=== PATIENT | female | born 1930 | race Caucasian/White ===

== ENCOUNTER 2018-09-28 18:18 | Inpatient (IN) ==
[2018-09-28] MEDS ORDERED: NS 1,000 ML IV ONE (19:02)
[2018-09-28 20:09] LABS: BASO# 0.05 X1000 (0.0-0.2); BASO% 0.5 % (0.0-0.8); EOS% 2.1 % (0.0-10.0); HEMATOCRIT 32.2 % (37.0-47.0); HEMOGLOBIN 10.2 g/dL (12.0-16.0); IMM GRAN# 0.03 X1000 (0.0-0.04); IMM GRAN% 0.3 % (0.0-0.5); LYMPH# 1.07 X1000 (1.2-3.4); LYMPH% 11.2 % (20.5-51.1); MCH 30.6 PG (27-31); MCHC 31.7 g/dL (33-37); MCV 96.7 FL (81-99); MONO# 0.93 X1000 (0.11-0.59); MONO% 9.7 % (1.7-9.3); MPV 12.9 FL (7.4-10.4); NEUT# 7.27 X1000 (1.4-6.5); NEUT% 76.2 % (42.2-75.2); PLT 172 X1000 (130-400); RBC 3.33 XMIL (4.2-5.4); RDW 14.6 % (11.5-14.5); WBC 9.55 X1000 (4.8-10.8)
[2018-09-28 20:15] LABS: URINE SOURCE CATH
[2018-09-28 20:23] LABS: BILIRUBIN URINE NEGATIVE (NEGATIVE); BLOOD URINE SMALL (NEGATIVE); COLOR YELLOW; GLUCOSE URINE NEGATIVE (NEGATIVE); KETONE URINE NEGATIVE (NEGATIVE); LEUKOCYTES URINE LARGE (NEGATIVE); NITRITE URINE NEGATIVE (NEGATIVE); PH URINE 5.5; PROTEIN URINE 100 mg/dL (NEGATIVE); SP GRAVITY URINE 1.017; TURBIDITY URINE HAZY (CLEAR); UROBILINOGEN URINE 2 mg/dL (NORMAL)
[2018-09-28 20:25] LABS: UR EPITHELIAL CELLS <10 /HPF (<10); URINE BACTERIA 4+ /HPF; URINE RBC <10 /HPF (<10); URINE WBC TNTC /HPF (<10)
[2018-09-28 20:35] LABS: ALBUMIN 3.2 g/dL (3.5-5.0); CALCIUM 9.1 mg/dL (8.8-10.2); CREATININE 1.2 mg/dL (0.5-0.9); POTASSIUM 4.6 mmol/L (3.5-5.1); TOTAL BILIRUBIN 0.92 mg/dL (0.20-1.00); TOTAL PROTEIN 6.5 g/dL (6.3-8.3)
[2018-09-28] MEDS ORDERED: CARDIZEM IV ONE (20:42)
--- NOTE | 2018-09-28 21:27 | Diag Imaging Result Doc PS360 ---
EXAM: CT ABDOMEN/PELVIS W/O CONTRAST INDICATION: abdominal pain, diarrhea TECHNIQUE: This exam was performed using automated exposure control, adjustment of mA or kV according to patient size, and/or use of iterative reconstruction technique. COMPARISON: None. FINDINGS: There is mild subsegmental atelectasis and/or scarring at the lung bases. There is cardiomegaly. There has been a prior cholecystectomy. There is a ill-defined low dense focus adjacent to the gallbladder fossa that probably represents focal fatty infiltration. The liver is unremarkable, otherwise. There is trace free fluid around the liver and a small amount of free fluid in the pelvis. The spleen, pancreas, and adrenal glands are grossly unremarkable. There are a couple of nonobstructing intrarenal stones on the right. There is no hydronephrosis. Urinary bladder is partially distended and there are a few droplets of gas in the nondependent portion of the urinary bladder, nonspecific. They may have been interval used from recent catheterization. There is a 4.7 cm partially calcified mass arising from the uterine wall that likely represents a leiomyoma. There is uncomplicated diverticulosis coli. There is no evidence of bowel obstruction. There is a small hiatal hernia. No focal bowel wall thickening is appreciated. There is no free abdominal gas appreciated. There is extensive aortoiliac atherosclerotic calcification. There is soft tissue anasarca around the pelvis. There is multilevel spondylosis. There is no evidence of acute osseous abnormality. IMPRESSION: 1.Cardiomegaly. 2.Small volume of free fluid in the pelvis. 3.Body wall anasarca that the pelvis. 4.A few droplets of gas in the urinary bladder lumen that may have been introduced from recent catheterization. Please correlate clinically. 5.Other incidental/nonacute findings detailed above. Electronically signed by Caden Woods 09/28/2018 9:25 PM
--- NOTE | 2018-09-28 21:50 | EKG Report ---
Test Performed on : 09/28/2018 8:37:13 PM Test Reason : AMS Blood Pressure : / mmHG Vent. Rate : 121 BPM Atrial Rate : 115 BPM P-R Int : 000 ms QRS Dur : 076 ms QT Int : 308 ms P-R-T Axes : 000 -19 099 degrees QTc Int : 437 ms Atrial fibrillation. with rapid ventricular response. Possible Anterior infarct , age undetermined Abnormal ECG No previous ECGs available Unconfirmed Result
[2018-09-28] MEDS ORDERED: MAGNESIUM SULFATE 2 GM/S.W.I. 2 GM/50 ML IVPB IV ONE (22:39)
[2018-09-29] MEDS ORDERED: ZOFRAN IV PRN (00:27)
[2018-09-29] MEDS ORDERED: LASIX IV ONE ×2 (00:27→10:25)
--- NOTE | 2018-09-29 00:41 | HISTORY AND PHYSICAL ---
ADDENDUM: HISTORY OF PRESENT ILLNESS: Ms. Perla Brewer is an 88-year-old woman with past medical history of worsening and progressive dementia, atrial fibrillation, hypertension, hyperlipidemia, brought in today by the family because she was more confused and has been having visual hallucinations for the last 1 week. She has also been having an almost 2-week history of at least 10 loose stools per day, nonbloody. The patient does not admit to any abdominal symptoms, however. Although, she is an extremely poor historian. Also, the patient's exam is notable for an irregular heart rate, was slightly tachycardic (patient was given Cardizem in the ER). She is also notable for 2+ pitting edema up to the knees with accompanying blanching macular rash which is somewhat urticarial. The family says this occurred over the last couple of weeks and the patient admits that this is pruritic. Also, the patient does have skin changes consistent with chronic venous insufficiency in her lower extremities with crusting of exudates over her shins bilaterally. No focal deficits noted. BRIEF ASSESSMENT INCLUDES: 1. Atrial fibrillation, rapid ventricular response. 2. Urinary tract infection. 3. Acute diarrhea. 4. Worsening dementia with encephalopathy. 5. Hypomagnesemia per laboratory work. PLAN: So, the patient will be covered with Rocephin for urinary tract infection. We will continue cautiously with diuretics, so as not to tip patient into WIL. Preferably use half her current dose. The patient's rash is very typical of a drug rash. I have seen this rash sometimes occurring with use of Cardizem. If it gets worse with the use of Cardizem, then I would suggest switching Cardizem to an alternative rate control agent. Continue with anticoagulation. Replete magnesium. Stool studies are pending and need to be followed closely. Family denies any close contacts with GI symptoms. I will follow urine cultures. cc: Lan Hendricks MD
[2018-09-29] MEDS: ROCEPHIN 1 GM in NS 50 ML IV SCH (00:56)
--- NOTE | 2018-09-29 03:37 | PROVIDER DOCUMENTATION ---
This chart was entered by Yoana Camargo Scribe, acting as scribe for Kathrin Corral MD. HPI-Abdominal Pain/GI Problem - General Chief Complaint: Abdominal Pain Stated Complaint: AMS/ABD PAIN Time Seen by Provider: 09/28/18 18:39 Source: patient Allergies/Adverse Reactions: Patient Allergies Allergy/AdvReac Type Severity Reaction Status Date / Time Iodinated Contrast- Oral and Allergy RASH Verified 09/28/18 19:57 IV Dye [IV Dye] Home Medications: Home Medication List Medication Instructions Recorded Confirmed Last Taken Type Apixaban [Eliquis] 1 tab PO BID 09/28/18 09/28/18 09/26/18 History Aspirin [Aspir-Low] 1 tab PO DAILY 09/28/18 09/28/18 09/26/18 History Cyanocobalamin (Vitamin B-12) 1 tab PO DIRECTED 09/28/18 09/28/18 Unknown History [Cyanocobalamin] Diltiazem HCl [Diltiazem 24Hr ER] 2 cap PO DAILY 09/28/18 09/28/18 09/26/18 History Fenofibrate [Tricor] 1 tab ORDERED DAILY 09/28/18 09/28/18 09/26/18 History Furosemide 1 tab PO DAILY 09/28/18 09/28/18 09/26/18 History Lactobac Cmb #3/Fos/Pantethine 1 cap PO DAILY 09/28/18 09/28/18 09/28/18 History [Probiotic & Acidophilus Cap] Metoprolol Succinate E.r. [Toprol 100 mg PO HS 09/28/18 09/29/18 Unknown History Xl] Pantoprazole Sodium [Protonix] 1 tab PO DAILY 09/28/18 09/28/18 09/26/18 History Pravastatin Sodium [Pravachol] 1 tab PO DAILY 09/28/18 09/28/18 09/26/18 History Metoprolol Succinate E.r. [Toprol 50 mg PO DAILY 09/29/18 09/29/18 Unknown History Xl] - History of Present Illness-ABD Nature of Presenting Problems: Pt is 88/F presenting to ED w/ lower abd pain and diarrhea that she reports started about 2 weeks ago. Sts that she has diarrhea multiple times a day. Granddaughter at bedside sts that she has had some AMS as well and has been reporting seeing bugs that are not actually there. She has not been eating or drinking as normal and has been weak and spending most of her time on the couch. Pt was ambulatory and well just 2 weeks earlier per family. Furthermore, pt sts that she has also had some dysuria, pt is mostly incontinent. Pt does have hx of renal insufficiency and CHF and has a pacemaker/defibrillator. Two weeks prior she was fluid overloaded and her lasix were increased, it is also reported per family that these sx started around this time. Abdominal Pain Onset Location: reports: suprapubic Pain Radiation: reports: no radiation Quality of Pain: reports: aching Severity in ED: reports: mild Onset/Duration: reports: other (2 weeks [employer]NU[employer]) Timing: reports: still present Activities at Onset: reports: none Exposure to sick contacts?: No Modifying Factors: improves with: nothing Associated Symptoms: reports: diarrhea, weakness. denies: chest pain, dizziness, fever/chills, nausea, syncope, vomiting Dark Stools Present?: reports: none noticed Rectal Bleeding: reports: none Rectal Pain: reports: none Emesis Description: reports: none Bruising or Bleeding Gums?: No Similar Symptoms Previously?: No Recently seen or treated by another doctor?: No Review of Systems - Adult - REVIEW OF SYSTEMS - ADULT Constitutional: denies: chills, fever Eyes: reports: no symptoms reported Ears, Nose, Mouth & Throat: reports: no symptoms reported Cardiovascular: reports: no symptoms reported. denies: chest pain Respiratory: reports: no symptoms reported Gastrointestinal: reports: abdominal pain, diarrhea. denies: nausea, rectal bleeding, vomiting Genitourinary: reports: dysuria Musculoskeletal: reports: no symptoms reported Integumentary: reports: no symptoms reported Neurological: denies: dizziness/vertigo, headache/migraines Psychiatric: reports: no symptoms reported Endocrine: reports: no symptoms reported Hematologic/Lymphatic: reports: no symptoms reported Allergic/Immunologic: reports: no symptoms reported All Other Systems: Reviewed and Negative Past History - Adult - PAST MEDICAL HISTORY-ADULT Review of Records: reports: Old Records Reviewed, Nursing Assessment Review, Medications Reviewed, Social history reviewed & non-contributory. Cardiovascular: reports: CHF, pacemaker Genitourinary: reports: incontinence - PRIOR SURGERIES/PROCEDURES Surgical/Procedure History: reports: cholecystectomy - SOCIAL HISTORY Living Situation: alone Physical Exam-General - PHYSICAL EXAM-ADULT Initial Vital Signs Reviewed: Yes - CONSTITUTIONAL General Appearance: appears well, alert, no apparent distress - EYES Eyes: PERRL/EOMI, pink conjunctivae - HEAD, EARS, NOSE, MOUTH & THROAT HENMT: normocephalic/atraumatic, moist mucous membranes, normal ENT inspection - NECK Neck: non-tender, full range of motion, supple, normal inspection - RESPIRATORY Respiratory: lungs clear - CARDIOVASCULAR Cardiovascular: systolic murmur, irregularly irregular - GASTROINTESTINAL (ABDOMEN) Abdominal Exam: normal bowel sounds, soft, tenderness (lower abd/suprpubic tenderness upon palpation) - LYMPHATIC Lymphatic: no adenopathy - MUSCULOSKELETAL Back Exam: normal inspection, no CVA tenderness, no vertebral tenderness Extremity: normal range of motion, non-tender, normal gait, normal inspection - SKIN Integumentary: normal color, warm/dry - NEUROLOGIC Neurologic: grossly normal - PSYCHIATRIC Psych/Mental Status: normal mood/affect, normal thought content, normal thought process, oriented x 3 Progress - PLAN OF CARE/RESULTS Progress/Plan/Lab Results: Vital Signs - 8 hr 09/28/18 18:29 Temperature 98.3 F Pulse Rate 96 H Respiratory Rate 18 Blood Pressure 164/93 O2 Sat by Pulse Oximetry 100 Result Diagrams: 09/28/18 19:49 09/28/18 19:49 - CONSULTS/PCP/HOSPITALIST Notification #1 *Consult/PCP/Hospitalist*: Dr. Hendricks Time Discussed: 23:20 Consult Disposition: Admit (Hx, PE and pt care discussed, accepted.) Departure - Departure Date of Disposition Decision: 09/28/18 Time of Disposition Decision: 23:29 DIAGNOSIS: Weakness, Atrial fibrillation with RVR Diarrhea Qualifiers: Diarrhea type: unspecified type Qualified Code(s): R19.7 - Diarrhea, unspecified Leiomyoma of uterus Qualifiers: Uterine leiomyoma location: unspecified location Qualified Code(s): D25.9 - Leiomyoma of uterus, unspecified UTI (urinary tract infection) Qualifiers: Urinary tract infection type: acute cystitis Hematuria presence: without hematuria Qualified Code(s): N30.00 - Acute cystitis without hematuria Disposition: ADMITTED INPATIENT 09 Certified Medical Emergency: Emergent Condition: Stable - Critical Care Note This patient required my direct & personal management of CC.: No Attestation - Physician/ TAM Attestation Patient care was provided by Advanced Practice Provider:: No The physician spent face to face time with patient:: Yes Advanced Practice Provider documentation review:: Supervising physician onsite and consulted in the evaluation and care of this patient. The physician did have a face to face encounter with the patient. This chart was documented by the indicated scribe, (Yoana Camargo, Mary) and accurately reflects the services I performed and decisions made by me, Kathrin Wahl MD, as attested by the provider's signature.
[2018-09-29 04:38] LABS: INR 1.06; PROTIME 14.7 Seconds (11.0-16.0)
[2018-09-29 04:39] LABS: PTT 37.1 Seconds (22.3-41.8)
[2018-09-29 04:58] LABS: BASO# 0.07 X1000 (0.0-0.2); BASO% 0.9 % (0.0-0.8); EOS# 0.12 X1000 (0.0-0.7); EOS% 1.6 % (0.0-10.0); IMM GRAN# 0.03 X1000 (0.0-0.04); IMM GRAN% 0.4 % (0.0-0.5); LYMPH# 0.74 X1000 (1.2-3.4); LYMPH% 9.9 % (20.5-51.1); MCH 30.7 PG (27-31); MCHC 31.3 g/dL (33-37); MCV 98.2 FL (81-99); MONO# 0.74 X1000 (0.11-0.59); MONO% 9.9 % (1.7-9.3); MPV 12.7 FL (7.4-10.4); NEUT% 77.3 % (42.2-75.2); PLT 150 X1000 (130-400); RBC 3.26 XMIL (4.2-5.4); RDW 14.4 % (11.5-14.5)
[2018-09-29 05:00] LABS: EOS 1 % (1-10); LYMPHS 11 % (21-51); MONO 9 % (1-9); SEGS 79 % (42-75)
[2018-09-29 05:01] LABS: CALCIUM 8.9 mg/dL (8.8-10.2); CREATININE 1.2 mg/dL (0.5-0.9); MAGNESIUM 1.6 mg/dL (1.5-2.7); POTASSIUM 3.8 mmol/L (3.5-5.1)
[2018-09-29] MEDS: PROTONIX PO SCH (06:19)
--- NOTE | 2018-09-29 06:51 | HISTORY AND PHYSICAL ---
PRIMARY CARE PROVIDER: Dr. Tahmina Stuart. RECREATIONAL ASSISTANT: Dr. Braden at the [facility]. CHIEF COMPLAINT: Abdominal pain and diarrhea. HISTORY OF PRESENT ILLNESS: Ms. Brewer is an 88-year-old female with a past medical history most notable for chronic atrial fibrillation on anticoagulation with Eliquis hypertension, hyperlipidemia, congestive heart failure, chronic kidney disease, and dementia. Her family which included her son, her evdgjgnr-oo-aam, and her granddaughter who is a nurse were present at bedside. They report that now over the past 6 months or so that she has had progressive worsening dementia and is now having some worsening confusion and visual hallucinations. Her son states that since she had a cholecystectomy performed that this has progressively gotten worse. They also report that for approximately 6 months now that her congestive heart failure seems to be possibly acting up. She does have orthopnea, and sleeps propped up at night. She has had bilateral lower extremity edema and left arm edema. Her granddaughter states that approximately 1-2 months ago that they did double her Lasix dose that she went from taking 40 mg a day to 80 mg twice a day. They state that since that time that she has lost approximately 15 pounds, and that her edema has improved though is still worse than it previously was. They also report that now she has been complaining of some lower abdominal pain. She does have an erythematous rash noted to bilateral lower extremities that has just come up in the past few days. The patient reports this is an itchy rash. They also report that she has had diarrhea for the past 2 weeks. She is having approximately up to 10 episodes of loose stools that are watery brownish orange in color for the past 2 weeks. They deny her having any new medicine or any recent medication changes. They also deny anyone else in the family having similar symptoms. Her granddaughter does report that she believes that the patient has not been completely compliant with her atrial fibrillation medications that she may miss a dose of Cardizem, metoprolol, and even her Lasix every now and then. The patient does seem to be more confused, and they report that she is having visual hallucinations that she is seeing bugs that are not there. Upon my examination in the ER, the patient was sitting up in the ER stretcher resting. The patient is alert and oriented to person, place, and time. Though she could not remember her son's middle name who was at bedside. Other than this, she did seem to answer questions appropriately. She denies any headache, dizziness, or chest pain. She is reporting some exertional dyspnea as well as orthopnea. She denies any proximal nocturnal dyspnea. She denies any cough. The patient was reporting some lower abdominal pain that was nontender upon palpation. Bowel sounds are present in all 4 quadrants. She denied any nausea or vomiting. She reported that her stools were loose, watery, and brownish orange in color. There was no known hematochezia or melena. The patient is denying any dysuria or urinary frequency. She is reporting that she has swelling in her bilateral lower extremities and that she does have an itchy rash, which was noted upon my examination though she denies any pain, numbness or tingling in extremities. The patient upon arrival to the ER was tachycardic with a heart rate in the 130s. This was noted to be atrial fibrillation with a rapid ventricular response on her EKG. I did give her 20 mg of Cardizem IV push, and since that time her heart rate has improved. It is maintaining in the 80s at this time. She does have crackles noted in bilateral lower lung mock. She does have some slight JVD noted with a positive hepatojugular reflex. She does have 2 to 3+ pitting edema noted in bilateral lower extremities as well as some swelling noted to her left arm. Chest x-ray did appear to have some pulmonary vascular congestion noted as well as some cardiomegaly though we are awaiting official radiology read. ProBNP was 24,989. Troponin was slightly elevated at 0.077. The patient does have some chronic kidney disease. This could be related to this though actually compared to the only previous labs we have on record her creatinine had improved from 2 to 1.2. Her magnesium was low at 1.3 though all other electrolytes were within normal limits. Urinalysis did show small amount of blood, large leukocytes, too numerous to count white blood cells, and 4+ bacteria. CT abdomen and pelvis showed cardiomegaly, body wall anasarca though there were no other acute abnormalities noted. At this time, the patient will be admitted for further treatment and evaluation. REVIEW OF SYSTEMS: 1. A 14 point review of systems was conducted with the patient. All were negative except for pertinent positives mentioned above in HPI. 2. Coronary artery disease, status post coronary artery bypass graft. 3. Congestive heart failure. 4. Chronic atrial fibrillation on chronic anticoagulation with Eliquis. 5. Hypertension. 6. Hyperlipidemia. 7. Chronic kidney disease. 8. Dementia. 9. Gastroesophageal reflux disease. 10. Cataracts. PAST SURGICAL HISTORY: 1. Coronary artery bypass graft. 2. Cholecystectomy. 3. Cataract surgery. 4. Pacemaker/defibrillator placement. SOCIAL HISTORY: The patient has no known past or present history of tobacco, alcohol or illicit drug use. She does not require ambulatory assistance at this time. The patient does live alone though does live at [facility]. There may be a possible need upon discharge to have the patient placed in a higher level of care and possibly maybe an assisted living facility. ALLERGIES: Patient has allergies to iodinated contrast, oral and IV dye. HOME MEDICATIONS: 1. Eliquis 2.5 mg p.o. b.i.d. 2. Aspirin 81 mg p.o. daily. 3. Vitamin B2 1000 mcg tablet orally as directed. 4. Diltiazem 24 hour extended release 360 mg p.o. daily. 5. TriCor 145 mg p.o. daily with food. 6. Lasix 40 mg p.o. daily. 7. Probiotic and acidophilus capsule 1 capsule p.o. daily. 8. Toprol-XL 50 mg p.o. daily in the morning. 9. Toprol-XL 100 mg p.o. at bedtime. 10. Protonix 40 mg p.o. daily. 11. Pravachol 80 mg p.o. daily. DIAGNOSTIC DATA: 1. White blood cell count is 9550, hemoglobin 10.2, hematocrit 32.2, and platelet count is 172,000. Sodium 140, potassium 4.6, chloride 104, serum bicarb 21, BUN 28, creatinine 1.2, with GFR 43, glucose 114, calcium 9.1, magnesium 1.3. Liver function tests within normal limits except for AST is elevated at 36. CK 88, troponin 0[place]077[place] [address]. Urinalysis was obtained via catheter, and was positive for protein, blood, large leukocytes, too numerous to count, blood cells, and 4+ bacteria. EKG showed atrial fibrillation with RVR at a rate of 121 with a QTc of 437. 2. Chest x-ray did show what looks like some possibly increased pulmonary vascular congestion and cardiomegaly, though we are awaiting official radiology over-read. 3. CT of abdomen and pelvis without contrast showed cardiomegaly. A small volume of free fluid in the pelvis. There is body wall anasarca in the pelvis. There are a few droplets of gas in the urinary bladder lumen that may have been introduced from a recent catheterization. Please correlate clinically. The patient from what I understand did undergo an in and out catheterization in the ER to obtain a urinalysis. 4. There were other incidental nonacute findings. Please see full report for details. PHYSICAL EXAMINATION: VITAL SIGNS: Temperature 98.2 degrees, heart rate 90, respirations 20, blood pressure 162/97, and oxygen saturation is 98% on room air. GENERAL: Ms. Brewer is a pleasant 88-year-old elderly female. She was resting in the ER stretcher. She was in no acute distress. She was awake, alert, and able to answer questions appropriately. HEENT: Head is atraumatic, normocephalic. Pupils are equal, round, reactive to light, and were 3 mm bilaterally and brisk. Oral mucosa is moist. Oropharynx was clear. NECK: Supple. Trachea midline. There was JVD noted. There was some slight JVD noted upon examination with a positive hepatojugular reflex. CARDIOVASCULAR: Patient has S1-S2 present. There does appear to maybe be a faint systolic murmur noted. No other gallops or rubs appreciated. She does have a regular rate with an irregularly irregular rhythm. PULMONARY: Patient has symmetrical chest expansion bilaterally. Lung sounds in bilateral upper mock were clear though she did have fine crackles noted in bilateral bases. ABDOMEN: Soft. Nondistended. Nontender. Bowel sounds are present in all 4 quadrants and were normoactive. EXTREMITIES: No cyanosis noted though the patient does have 2 to 3+ pitting edema noted in bilateral lower extremities. This extends all the way up to her hip area. She does have some areas on her bilateral lower legs below the knees where it does look like she is weeping a little bit. She also does have some swelling with 1+ edema in her left upper extremity. Right upper extremity within normal limits. Radial and pedal pulses were 2+ bilaterally. Pulse, motor, and sensory are intact in all extremities. She also does have some slight erythema noted to bilateral lower extremities. She does have a erythematous pruritic rash noted that does ofelia noted on bilateral lower extremities as well. INTEGUMENTARY: The patient's skin is pink, warm, and dry except for above abnormalities mentioned in the extremities exam. NEUROLOGICAL: Patient is alert and oriented to person, place, and time. She is able to answer questions appropriately and follow commands though does seem to be off. She was not able to tell us her son's middle name who was at bedside though she is able to move all extremities. Does not appear to be any focal neurological deficits noted. ASSESSMENT AND PLAN: 1. Congestive heart failure exacerbation. The patient may be slightly exacerbated. She has been having problems with edema, exertional dyspnea, and orthopnea over the past several months. We will continue the series of cardiac enzymes. We will repeat an EKG in the morning. We have also ordered an echocardiogram. We will give her a 1 time dose of IV Lasix, and continue her regularly prescribed oral Lasix in the morning. We have placed a consult with Cardiology, and will await their evaluation and further recommendations for management. 2. Chronic atrial fibrillation. The patient was in atrial fibrillation with RVR upon arrival. The granddaughter at bedside states that she may be missing some of her doses of medicine. She was given 20 mg IV push of Cardizem, and her heart rate is back within normal limits at this time. We will continue her regularly prescribed extended release Cardizem and Toprol-XL. We will continue with the prescribed anticoagulant of Eliquis. She was placed on continuous cardiac telemetry and CIC. We will do vital signs per CIC protocol. 3. Diarrhea. For further evaluation of this, we have placed orders for stool studies. The patient denies any new medicines or any medication changes. She is denying any abdominal pain at this time though did previously reports some lower abdominal pain that was nontender upon palpation. CT abdomen and pelvis did not show anything acute that could be causing this at this time. We will await stool studies and continue to follow. 4. Hypomagnesemia. This is likely related to her diarrhea. Given her reported weakness and cardiac history, we will go ahead and replace this with 2 g of magnesium sulfate IV. We will repeat a BMP and magnesium in the morning. 5. Urinary tract infection. The patient is not reporting dysuria, but is reporting some lower abdominal pain and has had some worsening confusion. We will place her with antibiotics coverage of Rocephin 1 g IV daily 24 hours. We will await urine culture results. 6. Weakness. This could be multifactorial. The patient does have CHF atrial fibrillation. She has been having several daily episodes of diarrhea, and has a urinary tract infection as well. We will continue to monitor this closely. We will order a physical therapy evaluation and we will continue to follow. 7. Encephalopathy. The patient does have a history of dementia. The family reports that she has been more confused recently. Actually, she had some hallucinations of seeing some bugs that were not there. To be multifactorial, the patient does have a urinary tract infection at this time. This could be related to this. We will continue to monitor this closely. 8. Chronic kidney disease. I only had set of previous labs to compare her renal function to for which her creatinine was 2, and it is now 1.2. At this time, this appears to be stable and actually improved. We will avoid nephrotoxic medications, and renally dose medications as necessary. We will do strict intake and output. 9. The patient has been placed on CIC with telemetry. She will have vital signs per CICC protocol, strict intake and output, incentive spirometry, frequent turns, cough, and deep breathing. She will be on a heart healthy diet. There is a concern given the patient's worsening confusion that she may require a higher level of care upon discharge possibly in an assisted living facility. We will place a social services counselor consult for further evaluation of this. Further orders and recommendations pending hospital course, diagnostic studies, and physician evaluation. Dictated by PABLO Clark for Lan Hendricks MD cc: Lan Hendricks MD
--- NOTE | 2018-09-29 07:18 | Diag Imaging Result Doc PS360 ---
EXAM: CHEST-PORTABLE 09/28/2018 HISTORY: Weakness TECHNIQUE: AP portable at 1100 COMMENT: There is cardiomegaly and increased pulmonary vascularity. There is interstitial pulmonary edema. There are no previous studies. IMPRESSION: Cardiomegaly and pulmonary edema. Electronically signed by Dominic Means 09/29/2018 7:16 AM
--- NOTE | 2018-09-29 07:25 | EKG Report ---
Test Performed on : 09/29/2018 06:33:00 AM Test Reason : CHF,A-Fib Blood Pressure : / mmHG Vent. Rate : 103 BPM Atrial Rate : 092 BPM P-R Int : 000 ms QRS Dur : 080 ms QT Int : 370 ms P-R-T Axes : 000 -17 032 degrees QTc Int : 484 ms Atrial fibrillation. /atrial flutter with rapid ventricular response. with premature ventricular or a berrantly conducted complexes. Possible Anterior infarct (cited on or before 28-SEP-2018) Abnormal ECG When compared with ECG of 28-SEP-2018 20:37, (Unconfirmed) No significant change was found Confirmed by Richard Foreman MD ([id number]) on 09/29/2018 6:40:13 PM
[2018-09-29] MEDS ORDERED: DILTIAZEM HCL PO SCH ×2 (09:00)
[2018-09-29] MEDS ORDERED: LASIX PO SCH ×2 (09:00→18:00)
[2018-09-29] MEDS ORDERED: PRAVASTATIN SODIUM PO SCH (09:00)
[2018-09-29] MEDS: ASPIRIN EC PO SCH (09:39)
[2018-09-29] MEDS: ELIQUIS PO SCH ×2 (09:39→20:48)
[2018-09-29] MEDS: CULTURELLE PO SCH (09:39)
[2018-09-29] MEDS: TOPROL XL PO SCH ×2 (09:41→20:49)
--- NOTE | 2018-09-29 10:33 | EKG Report ---
Test Performed on : 09/29/2018 09:31:08 AM Test Reason : elevated HR Blood Pressure : / mmHG Vent. Rate : 121 BPM Atrial Rate : 375 BPM P-R Int : 000 ms QRS Dur : 084 ms QT Int : 322 ms P-R-T Axes : 000 -16 076 degrees QTc Int : 457 ms Atrial flutter. with variable AV block. with premature ventricular or aberrantly conducted complexes. Possible Anterior infarct (cited on or before 28-SEP-2018) Abnormal ECG When compared with ECG of 29-SEP-2018 06:33, (Unconfirmed) No significant change was found Confirmed by Richard Foreman MD ([id number]) on 09/29/2018 8:50:48 PM
--- NOTE | 2018-09-29 11:11 | PROGRESS NOTE ---
DATE: 09/19/2018 INTERVAL HISTORY: No acute events overnight. SUBJECTIVE: The patient was admitted for atrial fibrillation with rapid ventricular rate, suspected acute cystitis and worsening confusion with likely progression of dementia and diarrhea. The patient is alert and oriented to herself, not entirely with the situation. She identifies her [id number] as her niece. She is denying any chest pain or shortness of breath. However, appears in mild shortness of breath. VITALS: Temperature 99.9 degrees, pulse of 103 per minute, respiratory 22, blood pressure 150/70, saturating 96% on nasal cannula. Physical: In mild distress because of shortness of breath. No pallor, cyanosis, clubbing or icterus. Oral cavity is moist. Bilateral infrascapular crackles. S1 S2 normal, irregularly irregular. Abdomen is soft, nontender. Bilateral lower extremity edema extending upto thighs. Urticarial rash affecting left lateral leg and thigh. she is alert, oriented to her self and place but not with the situation. Follows Commands like opening mouth, raising both hands above ground level. LABS: Normocytic anemia, normal platelet count, normal coagulation profile. Hypomagnesemia has resolved. She appears to have chronic kidney disease stage III to stage IV. However, I do not have previous labs to call it chronic. Her troponins have been showing flat trend so far. Microbiology urine culture is in lab. IMAGING: No new imaging data. ASSESSMENT AND PLAN: 1. Acute dyspnea due to acute pulmonary edema, likely acute CHF exacerbation. Follow up echocardiogram. This is likely related to medication noncompliance as per talk with the patient's [id number]. Continue Lasix and give additional doses as required. 2. Atrial fibrillation with rapid ventricular rate. She is listed to be taking metoprolol, diltiazem and apixaban. I will continue metoprolol, apixaban and add diltiazem as tolerated after echocardiogram. She is more than 77 years old. Has history of hypertension. Her CHADS2 Vasc score is at least 3 for now pending echocardiogram. 3. Reported history of diarrhea and acute cystitis on admission CT scan. Continue intravenous ceftriaxone. Follow up urine culture. Follow up Clostridium difficile analysis and stool studies as well. 4. Others chronic kidney failure, likely chronic. Appears to be at baseline. Follow up with basic metabolic profile. Start Loratadine for urticarial rash over leg. 5. Dementia with progressive functional decline over months. At the time of discharge the patient would need rehab and likely long-term fdc facility. I did discussed that with the patient's [id number]. I will try and get in touch with the patient's granddaughter, also inform her about the patient's care. I will continue to monitor patient in CIC for now. 6. Plan of care discussed with the patient's [id number]. All of her questions have been answered. cc: Davian Saba MD MTDD
[2018-09-29] MEDS: MAGNESIUM SULFATE 2 GM/S.W.I. 2 GM/50 ML IVPB IV SCH ×2 (12:09→14:30)
[2018-09-29] MEDS ORDERED: CALMOSEPTINE OINTMENT TOP PRN (13:05)
[2018-09-29] MEDS ORDERED: LOPRESSOR IV PRN (13:23)
[2018-09-29] MEDS ORDERED: CARDIZEM CD PO ONE (13:23)
--- NOTE | 2018-09-29 14:05 | CARDIOLOGY CONSULTATION ---
DATE: 09/29/2018 CHIEF COMPLAINT ON PRESENTATION: Abdominal pain, weakness, confusion. HISTORY OF PRESENT ILLNESS: Ms Brewer is an 88-year-old white female with a history of chronic atrial fibrillation normally followed by Dr. Sampson west in [place]. She presents with complaints of generalized confusion, weakness. I believe the daughter is present with her today. She has also had issues of hallucinations as well as diarrhea. The patient was ultimately admitted, found to be in a tachycardic irregular rhythm consistent with her atrial fibrillation. She was admitted to the [facility]. Presently, the patient seems more alert, able to interact with the examiner. She has no acute complaints and is tolerating oral intake. PAST MEDICAL HISTORY: 1. Coronary disease with history of bypass. She has a history of MORALES to the LAD. This was performed in 2006. Her last heart catheterization was in 2016. She had a proximal LAD lesion of 90%, D1 lesion of 90%, D2 of 90%, circumflex had 30%, RCA 30%. Her MORALES to the LAD was patent on that study. 2. Ischemic cardiomyopathy. Last echo in 2018 with an ejection fraction of 50%. 3. AICD implant at [place]. 4. Atrial fibrillation, maintained on low-dose Eliquis. 5. Hypertension. 6. Hyperlipidemia. 7. Chronic renal insufficiency. SOCIAL HISTORY: She has no history of tobacco, alcohol, or illicit drugs. She lives at [facility]. REVIEW OF SYSTEMS: A 10 system review of systems is negative, except for those things mentioned in HPI. PHYSICAL EXAMINATION: She is afebrile, heart rate of 114, blood pressure 162/71.General: She is in no acute distress. HEENT: Oropharynx is moist. Poor dentition. Eye examination shows pink conjunctivae and white sclerae. Her neck examination shows no obvious thyromegaly or thyroid tenderness. Cardiovascularly, she sounds to be in an irregularly irregular tachycardic rhythm. She has no obvious murmurs. She has no S3. She has mild bilateral lower extremity edema and warm and well-perfused lower extremities. Her chest exam has basilar rales up to around 1/3. She has no increased work of breathing. Her abdomen is soft, nontender, nondistended. She has no obvious organomegaly. Her skin exam is warm and dry throughout without any rashes. Neurologically, she seems to be moving all extremities well. She has no lateralizing deficits. DATA: Her chest x-ray shows cardiomegaly with pulmonary edema. Abdomen and pelvis CT demonstrates a small volume of free fluid in the pelvis. She has anasarca noted. Laboratory data shows white count is 7.5, hematocrit 32, platelet count of 150,000. She has a left shift. Her sodium is 142, potassium 3.8, BUN 27 creatinine 1.2. Her magnesium level is 1.6. Her cardiac enzymes are negative times multiple sets. Her proBNP was elevated at 24,000. ASSESSMENT: Ms Brewer is an 88-year-old female who presented with myriad symptoms, includin. Malaise. 2. Fatigue. 3. Confusion. 4. Atrial fibrillation with rapid ventricular response. PLAN: She has chronic atrial fibrillation. We will place her on a Cardizem drip to try to control her. She continues on metoprolol. She does appear to have a urinary tract infection and is receiving antibiotics for this. She does seem volume overloaded so we will give her some IV Lasix as well. Laboratories will be checked in the morning. cc: John Crane MD
[2018-09-29] MEDS: CARDIZEM 125 MG/D5W 125 MG/125 ML IVPB IV SCH (14:44)
[2018-09-29] MEDS: CLARITIN PO SCH (20:48)
[2018-09-29] MEDS: TRICOR PO SCH (20:49)
[2018-09-29] MEDS: LASIX IV SCH (20:49)
[2018-09-29] MEDS: PRAVACHOL PO SCH (20:49)
--- NOTE | 2018-09-29 23:04 | ECHO REPORT ---
ORDER DATE: 09/29/2018 MEASUREMENTS: Septal thickness 1.0, left ventricular internal diameter diastole 3.9, posterior wall thickness 1.1. Aortic root 2.9. Left atrium 5.0. SUMMARY: 1. Fair quality study. 2. Moderate sclerosis of trileaflet aortic valve demonstrated with adequate aortic valve opening evident. Peak gradient across aortic valve is less than 10 mmHg. Mild mitral annular calcification is demonstrated. There is moderate to severe mitral regurgitation. Tricuspid and pulmonic valves are without evidence of structural abnormality with moderate to severe tricuspid regurgitation and mild pulmonic insufficiency. The estimated systolic PA pressure by Doppler is 55 to 60 mmHg, suggesting moderate pulmonary hypertension. Aortic root is normal in size. 3. Normal left ventricular dimensions suggested. Assessment of left ventricular systolic function is somewhat challenging given patient's atrial fibrillation with rapid ventricular rate during the study. Estimated left ejection fraction appears to be at least 40%. No focal wall motion abnormality can be appreciated. Left atrium is moderately enlarged. Right atrium is [id number] enlarged. Right ventricle is normal in size with grossly preserved right ventricular systolic function. 4. No pericardial effusion. 5. Inferior vena cava not well demonstrated. cc: Maurice Fabian MD
[2018-09-30] MEDS: ROCEPHIN 1 GM in NS 50 ML IV SCH (00:18)
[2018-09-30 00:48] LABS: URINE SOURCE CATH
[2018-09-30 00:50] LABS: BILIRUBIN URINE NEGATIVE (NEGATIVE); BLOOD URINE NEGATIVE (NEGATIVE); COLOR YELLOW; GLUCOSE URINE NEGATIVE (NEGATIVE); KETONE URINE NEGATIVE (NEGATIVE); LEUKOCYTES URINE LARGE (NEGATIVE); NITRITE URINE NEGATIVE (NEGATIVE); PROTEIN URINE TRACE mg/dL (NEGATIVE); TURBIDITY URINE HAZY (CLEAR); UROBILINOGEN URINE NORMAL (NORMAL)
[2018-09-30 00:51] LABS: UR EPITHELIAL CELLS <10 /HPF (<10); URINE BACTERIA NEGATIVE /HPF; URINE RBC <10 /HPF (<10); URINE WBC TNTC /HPF (<10)
[2018-09-30] MEDS: PROTONIX PO SCH ×2 (05:38→06:17)
[2018-09-30] MEDS: CARDIZEM 125 MG/D5W 125 MG/125 ML IVPB IV SCH (05:38)
[2018-09-30 05:56] LABS: CALCIUM 8.5 mg/dL (8.8-10.2); CREATININE 1.3 mg/dL (0.5-0.9); MAGNESIUM 2.3 mg/dL (1.5-2.7); POTASSIUM 3.2 mmol/L (3.5-5.1)
[2018-09-30] MEDS: ASPIRIN EC PO SCH (09:29)
[2018-09-30] MEDS: CULTURELLE PO SCH (09:31)
[2018-09-30] MEDS: KLOR-CON PO SCH ×2 (09:32→12:10)
[2018-09-30] MEDS: CLARITIN PO SCH (09:33)
[2018-09-30] MEDS: TOPROL XL PO SCH ×2 (09:33→20:06)
[2018-09-30] MEDS: ELIQUIS PO SCH ×2 (09:33→20:06)
[2018-09-30] MEDS: LASIX IV SCH ×3 (09:34→20:06)
--- NOTE | 2018-09-30 09:47 | PROGRESS NOTE ---
DATE: 09/30/2018 INTERVAL HISTORY: Cardiology team had evaluated the patient and had recommended diltiazem drip and IV Lasix. She has made about 1.4 L of urine on that. SUBJECTIVE: She is feeling slightly better than she did yesterday. Denies any chest pain. She is feeling mildly short of breath. We discussed about physical exam findings, continuing current treatment. I answered all of her questions. VITALS: Temperature 98.2 degrees, pulse 80, respiratory rate 18, blood pressure 146/66, saturating 95% on 2 L nasal cannula. PHYSICAL EXAMINATION: General: She does not appear in any acute distress. HEENT: Oral cavity is moist. Lungs: Air entry bilaterally equal. She does have inspiratory crackles with decreased air entry bilateral infrascapular region. Cardiac: S1, S2 normal. Irregularly irregular. No murmur, rub, or gallop. Abdomen: Soft, nontender. Extremities: Bilateral lower extremity edema extending up to thigh level. Her urticarial rash on the left lower extremity is better. Neurologic: She is alert. She is oriented to place, person, and partially to situation. She is able to sit at the edge of the bed by herself. Input and output are -700 mL so far today. LABS: Suggestive of hypokalemia which is being repleted. She does appear to have chronic kidney disease in stage 3 range. Urine culture is gram-negative jeevan pending final culture and sensitivity. Echocardiogram had suggested ejection fraction of at least 40% without any focal regional wall motion abnormality with moderate to severe mitral regurgitation and pulmonary hypertension. On bedside telemetry, she is still in atrial fibrillation. ASSESSMENT AND PLAN: 1. Acute dyspnea due to acute pulmonary edema due to likely acute systolic congestive heart failure exacerbation due to medication noncompliance with echocardiogram suggest 40% EF. However, it was limited considering her atrial fibrillation at the time of evaluation. Continue intravenous Lasix as per Cardiology recommendation. Her troponins were showing flat trend at the time of admission. 2. Atrial fibrillation with rapid ventricular rate. Continue extended-release metoprolol and diltiazem with apixaban. Cardiology on board. She is still in atrial fibrillation. 3. Reported history of diarrhea and acute cystitis on admission CT scan. Her diarrhea seems to be getting better. Continue intravenous ceftriaxone. Follow up final urine culture and sensitivity. 4. Chronic kidney disease, currently appears to be in stage 3 range. Follow up daily BMP and magnesium. 5. Dementia with progressive functional decline over months. Physical therapy is on board. Eventually, she would need rehab. 6. Disposition. I will continue to monitor patient in [facility]. Plan of care discussed with the patient and nursing team. All of their questions have been answered. Yesterday I had discussed plan of care with the patient's granddaughter as well as daughter in-law. cc: Davian Saba MD
[2018-09-30] MEDS: COZAAR PO SCH (12:10)
--- NOTE | 2018-09-30 14:42 | CARDIOLOGY PROGRESS NOTE ---
DATE: 09/30/2018 SUBJECTIVE: The patient continues to be somewhat confused. She is pleasant and conversive but is confused. PHYSICAL EXAMINATION: Vital signs: She is afebrile, heart rate 95, blood pressure 147/83. General: She is in no acute distress. Cardiovascular: She sounds to be in a irregularly irregular but rate controlled rhythm. She has no murmurs. She has no S3. She has mild bilateral lower extremity edema. Chest: Has reduction in breath sounds in the bilateral bases. She has no increased work of breathing. Abdomen: Soft, nontender. PERTINENT DATA: Sodium 139, potassium 3.2, BUN 28, creatinine is 1.3. ProBNP is greater than 35,000. ASSESSMENT: Ms. Brewer is an 88-year-old female who presented with what appears to be a urinary tract infection and rapid atrial fibrillation and congestive heart failure. PLAN: Her echocardiogram was reviewed from yesterday, demonstrates a low ejection fraction of 40%. In addition, she has moderate to severe tricuspid regurgitation and moderate to severe mitral regurgitation. I have added in losartan 25 mg daily. We will continue with IV diuresis. Her rate is controlled on her current regimen. cc: John Crane MD
[2018-09-30] MEDS: VANCOCIN PO SCH ×2 (16:00→20:07)
[2018-09-30] MEDS: TRICOR PO SCH (17:25)
[2018-09-30] MEDS: CARDIZEM PO SCH (20:07)
[2018-09-30] MEDS: PRAVACHOL PO SCH (20:07)
[2018-10-01] MEDS: ROCEPHIN 1 GM in NS 50 ML IV SCH (00:28)
[2018-10-01] MEDS: VANCOCIN PO SCH ×4 (01:37→20:04)
[2018-10-01] MEDS: CARDIZEM PO SCH ×4 (01:37→20:04)
[2018-10-01 05:49] LABS: BASO# 0.01 X1000 (0.0-0.2); BASO% 0.2 % (0.0-0.8); EOS# 0.22 X1000 (0.0-0.7); EOS% 3.8 % (0.0-10.0); HEMATOCRIT 26.9 % (37.0-47.0); HEMOGLOBIN 8.6 g/dL (12.0-16.0); IMM GRAN# 0.02 X1000 (0.0-0.04); IMM GRAN% 0.3 % (0.0-0.5); LYMPH# 0.69 X1000 (1.2-3.4); LYMPH% 11.9 % (20.5-51.1); MCH 31.2 PG (27-31); MCV 97.5 FL (81-99); MONO# 0.62 X1000 (0.11-0.59); MONO% 10.7 % (1.7-9.3); MPV 13.3 FL (7.4-10.4); NEUT# 4.26 X1000 (1.4-6.5); NEUT% 73.1 % (42.2-75.2); PLT 141 X1000 (130-400); RBC 2.76 XMIL (4.2-5.4); WBC 5.82 X1000 (4.8-10.8)
[2018-10-01] MEDS: PROTONIX PO SCH ×2 (05:58→06:01)
[2018-10-01 06:09] LABS: CALCIUM 8.3 mg/dL (8.8-10.2); CREATININE 1.2 mg/dL (0.5-0.9); MAGNESIUM 1.8 mg/dL (1.5-2.7); POTASSIUM 3.6 mmol/L (3.5-5.1)
[2018-10-01] MEDS: ELIQUIS PO SCH ×2 (09:02→20:06)
[2018-10-01] MEDS: CLARITIN PO SCH (09:02)
[2018-10-01] MEDS: COZAAR PO SCH (09:02)
[2018-10-01] MEDS: ASPIRIN EC PO SCH (09:03)
[2018-10-01] MEDS: CULTURELLE PO SCH (09:03)
[2018-10-01] MEDS: TOPROL XL PO SCH ×2 (09:03→20:04)
--- NOTE | 2018-10-01 13:27 | PROGRESS NOTE ---
DATE: 10/01/2018 INTERVAL HISTORY: Her heart rate was well controlled on oral diltiazem and oral metoprolol. Her blood pressure was also better controlled. Her Clostridium difficile was positive, and she was started on oral vancomycin. Urinalysis has Klebsiella. SUBJECTIVE: She is feeling fine. Patient's son is at bedside. I discussed with the patient and her son about exam findings and plans, and answered all of their questions. The patient denies any chest pain or shortness of breath, feeling generally better. Denies any nausea or vomiting. She had a bowel movement which was formed hard around today morning. VITALS: Temperature 97.6 degrees, pulse 85, respiratory 15, blood pressure 140/72 and saturating 100% on 2 L nasal cannula. PHYSICAL EXAMINATION: Not in any acute distress. Oral cavity is moist. She does have decreased air entry with inspiratory crackles, more pronounced on the left than on the right, though present bilaterally. No wheeze or rhonchi. S1, S2 normal. Irregularly irregular. No murmur, rub, or gallop. Abdomen is soft and nontender. She has bilateral lower extremity edema extending up to thigh level. I could not appreciate a rash, which has significantly decreased. She is alert. She is oriented to place and person, and not entirely with the situation though. LABORATORY: Labs are suggestive of no leukocytosis, normocytic anemia, normal platelet count. She does have potassium of 3.6 on what appears to be chronic kidney disease stage 3. MICROBIOLOGICAL DATA: Fecal occult blood test was negative. C. Difficile antigen and antibody was positive. ASSESSMENT AND PLAN: 1. Acute dyspnea due to acute pulmonary edema due to acute systolic congestive heart failure exacerbation due to medication noncompliance with ejection fraction of 40%. Continue intravenous Lasix today, and start patient on oral Lasix. Appreciate cardiology recommendations about this. 2. Atrial fibrillation with rapid ventricular rate, well controlled on extended-release metoprolol and diltiazem. I will appreciate Cardiology recommendation about starting her on controlled release diltiazem. She is on apixaban for primary cerebrovascular accident prophylaxis. 3. Acute Klebsiella pneumoniae cystitis. Change antibiotics to oral Keflex. 4. Acute C. Difficile colitis. Start patient on oral vancomycin for 14 days. 5. Chronic kidney disease stage 3; dementia without behavioral disturbance are stable. 6. Physical Therapy on board. DISPOSITION: My plan is to continue to watch the patient for another 24 hours, give her IV Lasix, and hopefully discharge her to rehab tomorrow. I discussed with her son at bedside about her physical deconditioning, and need for possibly long-term long term care in the future. I answered all of her questions. I am awaiting Cardiology recommendation, and based on that we will consider discharging her tomorrow. Plan of care discussed with the patient and her son. cc: Davian Saba MD
[2018-10-01] MEDS: LASIX IV SCH ×2 (14:08→20:05)
[2018-10-01] MEDS: KEFLEX PO SCH ×2 (14:09→20:04)
[2018-10-01] MEDS: KLOR-CON PO SCH ×2 (14:09→17:19)
--- NOTE | 2018-10-01 15:02 | DISCHARGE SUMMARY ---
ADMISSION DATE: 09/28/2018 DISCHARGE DATE: DISCHARGE DISPOSITION: Rehabilitation facility. DISCHARGE CONDITION: At the time of dictation hemodynamically stable. Breathing well on 1 to 2 L nasal cannula. Does not appear in any shortness of breath. Her diarrhea seems to be improving. DISCHARGE DIAGNOSES: 1. Acute dyspnea. 2. Acute pulmonary edema. 3. Acute systolic congestive heart failure exacerbation with ejection fraction 40%. 4. Atrial fibrillation with rapid ventricular rate. 5. Acute Klebsiella pneumoniae cystitis. 6. Acute Clostridium difficile colitis. OTHER DIAGNOSES: 1. Chronic kidney disease stage 3. 2. Chronic systolic congestive heart failure. 3. Essential hypertension. 4. Atrial fibrillation. 5. Recurrent urinary tract infection. 6. Mild dementia. 7. Hyperlipidemia. 8. Chronic gastroesophageal reflux disease. 9. Coronary artery disease status post coronary artery bypass graft. DISCHARGE MEDICATIONS: Aspirin 81 mg daily, cyanocobalamin 1 tablet 1000 mcg daily, apixaban 2.5 mg b.i.d., pravastatin 80 mg daily, probiotic 1 capsule daily, metoprolol succinate 100 mg at nighttime and 50 mg in the morning time daily, fenofibrate 145 mg daily, cephalexin 250 mg every 6 hours for 5 days for UTI, vancomycin 125 mg orally every 6 hours for 14 days for C difficile colitis, diltiazem CD 120 mg daily, losartan 50 mg daily, furosemide 40 mg b.i.d., get a repeat kidney function test done in 5 days and decide about further dosing accordingly. VITALS: At the time of current dictation temperature 97.5 degrees, pulse 83, respiratory 16, blood pressure 133/59, saturating 100% 2 L nasal cannula. She is in atrial fibrillation with controlled ventricular response. PHYSICAL EXAMINATION: At the time of dictation oral cavity is moist. She does have decreased air entry with inspiratory crackles especially left infrascapular region than right. No wheeze or rhonchi. S1, S2 normal. Irregularly irregular. No murmur, rub, or gallop. Abdomen is soft, nontender. Bilateral lower extremity edema extending up to upper rivas to knee level. She is alert. She is oriented to place and person and partially with the situation. She does have memory impairment. She follows simple commands like coming out of bed, sitting in the chair, opening mouth, raising arms and following physical therapy instructions. LABS: At the time of dictation on October 01 WBC 5.8, hemoglobin 8.6, platelet 141,000. Potassium 3.6, BUN 32, creatinine 1.3, GFR 43, magnesium 1.8. Significant microbiology. Urine culture grew Klebsiella pneumoniae which was sensitive to cefazolin and levofloxacin. C difficile antigen and toxin analysis was positive. Stool occult blood test was negative. SIGNIFICANT IMAGING: Abdomen, pelvis CT on admission had cardiomegaly, body wall anasarca, few drops of gas in the urinary bladder, small volume of free fluid in the pelvis. Chest x-ray on admission had cardiomegaly and pulmonary edema. Echocardiogram performed had ejection fraction of 40% without any regional wall motion abnormality. Left atrium was moderately enlarged. HOSPITAL COURSE SUMMARY: Mr. Brewer is 88-year-old lady who usually lives by herself in her apartment, has a history of progressive dementia with gradual functional decline and atrial fibrillation, was brought to the hospital because of progressive confusion, weakness and nonbloody diarrhea. Apparently, patient had not been taking her medications regularly. When she presented to the emergency room she was found to be in acute dyspnea with bilateral lower extremity edema and acute pulmonary edema. She was also found to be in atrial fibrillation with rapid ventricular rate. She was admitted for further management. Her atrial fibrillation with rapid ventricular rate was treated with initially intravenous diltiazem infusion, which was later on changed to her home extended-release metoprolol as well as oral diltiazem. She was continued on apixaban. Her acute pulmonary edema and acute systolic congestive heart failure exacerbation were treated initially with IV Lasix. At the time of discharge she is discharging on oral Lasix and she should get repeat BMP done considering her chronic kidney disease and decide further dosing accordingly. For her diarrhea, stool C difficile analysis was sent which was positive for C difficile colitis and she was treated with oral vancomycin. She was also being discharged on cephalexin for acute cystitis. The patient does have progressive dementia and functional decline and she would benefit from rehab. I had discussed with patient's granddaughter, [id number] and son about her gradual declining functional status and that they should consider jail facility in the future. TIME SPENT: More than 30 minutes. cc: Davian Saba MD ADDENDUM on 10/02/18: Overnight: no acute events. Her heart rate was well controlled on oral medications. Subjective: Ms. Brewer denies chest pain or shortness of breath. Her diarrhea is better. Vitals: normal temperature, not tachycardic, still in A Fib, normotensive Physical exam: Not in any distress. Mild crackles on lower lungs which have improved. Plan: Discharge to rehab. Close follow up of kidney function and adjustment of lasix dose based on it. MTDD
[2018-10-01] MEDS: TRICOR PO SCH (17:19)
[2018-10-01] MEDS: PRAVACHOL PO SCH (20:04)
[2018-10-02] MEDS: VANCOCIN PO SCH ×2 (01:17→08:32)
[2018-10-02] MEDS: KEFLEX PO SCH ×2 (01:17→08:32)
[2018-10-02] MEDS: PROTONIX PO SCH (06:08)
[2018-10-02 06:58] LABS: CALCIUM 8.7 mg/dL (8.8-10.2); CREATININE 1.4 mg/dL (0.5-0.9); POTASSIUM 4.9 mmol/L (3.5-5.1)
[2018-10-02 07:50] VITALS: BP 151/78
[2018-10-02] MEDS: TOPROL XL PO SCH (08:32)
[2018-10-02] MEDS: CLARITIN PO SCH (08:32)
[2018-10-02] MEDS: ASPIRIN EC PO SCH (08:32)
[2018-10-02] MEDS: ELIQUIS PO SCH (08:33)
[2018-10-02] MEDS: CULTURELLE PO SCH (08:33)
[2018-10-02] MEDS ORDERED: COZAAR PO SCH (09:00)
[2018-10-02] MEDS ORDERED: LASIX PO SCH (09:00)
[2018-10-02] MEDS ORDERED: CARDIZEM CD PO SCH (09:00)
== END 2018-10-02 10:32 | DRG 291 ==
LOC: ED 18:18 → SUATTDRO 23:50 → 3S 23:50
PROVIDERS: ATTEND Internal Medicine
CPT/HCPCS: 51701; 71010; 71045; 74176; 80048; 80053; 81001; 82270; 82550; 83735; 83880; 84484; 85025; 85610; 85730; 87045; 87046; 87077; 87088; 87186; 87205; 87324; 87449; 89055; 93005; 93010; 93306; 94761; 94799; 96361; 96365; 96375; 97110; 97162; 97530; 99285; A9270; J0696; J1940; J3475; J7030; P9612

== ENCOUNTER 2018-12-20 11:33 | Inpatient (IN) ==
[2018-12-20 13:09] LABS: BASO# 0.03 X1000 (0.0-0.2); BASO% 0.7 % (0.0-0.8); EOS# 0.08 X1000 (0.0-0.7); EOS% 1.8 % (0.0-10.0); HEMATOCRIT 36.6 % (37.0-47.0); LYMPH# 0.75 X1000 (1.2-3.4); LYMPH% 16.9 % (20.5-51.1); MCH 30.5 PG (27-31); MCHC 30.1 g/dL (33-37); MCV 101.4 FL (81-99); MONO# 0.56 X1000 (0.11-0.59); MONO% 12.6 % (1.7-9.3); MPV 12.3 FL (7.4-10.4); NEUT# 3.03 X1000 (1.4-6.5); PLT 167 X1000 (130-400); RBC 3.61 XMIL (4.2-5.4); RDW 16.1 % (11.5-14.5); WBC 4.45 X1000 (4.8-10.8)
[2018-12-20 13:32] LABS: ALBUMIN 3.5 g/dL (3.5-5.0); CALCIUM 8.7 mg/dL (8.8-10.2); CREATININE 1.5 mg/dL (0.5-0.9); POTASSIUM 4.4 mmol/L (3.5-5.1); TOTAL BILIRUBIN 0.7 mg/dL (0.20-1.00); TOTAL PROTEIN 7.1 g/dL (6.3-8.3)
[2018-12-20] MEDS ORDERED: LASIX IV ONE (14:16)
[2018-12-20] MEDS ORDERED: CARDIZEM IV ONE (14:18)
--- NOTE | 2018-12-20 15:10 | Diag Imaging Result Doc PS360 ---
EXAM: CHEST-PORTABLE HISTORY: SOB, CHF TECHNIQUE: Chest single view COMPARISON: 09/28/2018 FINDINGS: The lungs are well expanded. The heart is enlarged. Left pacemaker. The vessels are not distended. There are no infiltrates. Small left pleural effusion. IMPRESSION: Cardiomegaly, but no pulmonary edema Electronically signed by Wenceslao Blanchard 12/20/2018 3:08 PM
[2018-12-20] MEDS ORDERED: NITROGLYCERIN TOP ONE (15:23)
--- NOTE | 2018-12-20 15:23 | EKG Report ---
Test Performed on : 12/20/2018 3:12:46 PM Test Reason : edema Blood Pressure : / mmHG Vent. Rate : 084 BPM Atrial Rate : 090 BPM P-R Int : 000 ms QRS Dur : 084 ms QT Int : 384 ms P-R-T Axes : 000 -18 -07 degrees QTc Int : 453 ms Atrial fibrillation. with premature ventricular or aberrantly conducted complexes. Cannot rule out Anterior infarct (cited on or before 28-SEP-2018) Abnormal ECG When compared with ECG of 29-SEP-2018 09:31, Atrial fibrillation. has replaced Atrial flutter. Inverted T waves have replaced nonspecific T wave abnormality in Inferior leads Nonspecific T wave abnormality, worse in Anterolateral leads Unconfirmed Result
--- NOTE | 2018-12-20 15:23 | PROVIDER DOCUMENTATION ---
This chart was entered by Neelam Chappell Scribe, acting as scribe for Keshawn Casarez MD. HPI-General Adult - General Chief Complaint: Edema Stated Complaint: BILA LEG PAIN Time Seen by Provider: 12/20/18 14:09 Source: patient Allergies/Adverse Reactions: Patient Allergies Allergy/AdvReac Type Severity Reaction Status Date / Time Iodinated Contrast Media Allergy RASH Verified 11/16/18 11:07 [IV Dye] Home Medications: Home Medication List Medication Instructions Recorded Confirmed Last Taken Type Apixaban [Eliquis] 1 tab PO BID 09/28/18 09/28/18 09/26/18 History Aspirin [Aspir-Low] 1 tab PO DAILY 09/28/18 09/28/18 09/26/18 History Cyanocobalamin (Vitamin B-12) 1 tab PO DIRECTED 09/28/18 09/28/18 Unknown History [Cyanocobalamin] Fenofibrate [Tricor] 1 tab ORDERED DAILY 09/28/18 09/28/18 09/26/18 History Lactobacillus 3/Fos/Pantethine 1 cap PO DAILY 09/28/18 09/28/18 09/28/18 History [Probiotic & Acidophilus Cap] Metoprolol Succinate E.r. [Toprol 100 mg PO HS 09/28/18 09/29/18 Unknown History Xl] Pravastatin Sodium [Pravachol] 1 tab PO DAILY 09/28/18 09/28/18 09/26/18 History Metoprolol Succinate E.r. [Toprol 50 mg PO DAILY 09/29/18 09/29/18 Unknown History Xl] CephALEXIN [Keflex] 250 mg PO Q6HR cap 10/01/18 Unknown Rx Diltiazem C.d. [Cardizem Cd] 120 mg PO DAILY cap 10/01/18 Unknown Rx Furosemide 1 tab PO BID #0 10/01/18 09/28/18 09/26/18 Rx Losartan [Cozaar] 50 mg PO DAILY tab 10/01/18 Unknown Rx Menthol/Zinc Oxide Ointment 1 gm TOP PRN PRN tube 10/01/18 Unknown Rx [Calmoseptine Ointment] Vancomycin [Vancocin] 125 mg PO Q6HR cap 10/01/18 Unknown Rx - History of Present Illness -Gen Adult Nature of Presenting Problems: 88yof presents to ED cc edema from waist down, that is getting worse for last 2 weeks and Afib with RVR. Pt reports she has had a 25lb weight gain over last 2 weeks. Pt lives at [facility] and Dr. Stuart the doctor there sent pt in for further evaluation of anasarca. Pt has hx of CHF. Location of Pain/Injury: reports: abdomen, lower body Quality of Pain: reports: tightness Severity: reports: moderate Onset/Duration: reports: last week Timing: reports: still present, getting worse Modifying Factors: improves with: nothing Similar Symptoms Previously?: No Recently seen or treated by another doctor?: No Review of Systems - Adult - REVIEW OF SYSTEMS - ADULT Constitutional: reports: see HPI. denies: chills, fever, fatique Eyes: reports: no symptoms reported Ears, Nose, Mouth & Throat: reports: no symptoms reported Cardiovascular: reports: see HPI, irregular heart rate (Afib) Respiratory: reports: no symptoms reported Gastrointestinal: reports: see HPI. denies: diarrhea, nausea, vomiting Genitourinary: reports: no symptoms reported Musculoskeletal: reports: no symptoms reported Integumentary: reports: see HPI, other (edema from waist down) Neurological: reports: no symptoms reported Psychiatric: reports: no symptoms reported Endocrine: reports: no symptoms reported Hematologic/Lymphatic: reports: no symptoms reported Allergic/Immunologic: reports: no symptoms reported All Other Systems: Reviewed and Negative Past History - Adult - PAST MEDICAL HISTORY-ADULT Review of Records: reports: Nursing Assessment Review, Medications Reviewed, Social history reviewed & non-contributory. Major Childhood Illnesses: reports: denies history Cardiovascular: reports: CHF, pacemaker Respiratory: reports: denies history Gastrointestinal: reports: denies history Obstetrical/Gynecological: reports: denies history Genitourinary: reports: incontinence Musculoskeletal: reports: denies history Neurological: reports: denies history Endocrine/Immune: reports: denies history Other Conditions: reports: denies history - PRIOR SURGERIES/PROCEDURES Surgical/Procedure History: reports: cholecystectomy - IMMUNIZATION STATUS Childhood Immunizations: See Nurse Assessment Flu Vaccine: See Nurse Assessment - FAMILY HISTORY Family History: reviewed, not pertinent Physical Exam-General - PHYSICAL EXAM-ADULT Initial Vital Signs Reviewed: Yes - CONSTITUTIONAL General Appearance: appears well, alert. negative: anxious, combative - EYES Eyes: PERRL/EOMI, pink conjunctivae. negative: photophobia - HEAD, EARS, NOSE, MOUTH & THROAT HENMT: normocephalic/atraumatic, moist mucous membranes. negative: angioedema - RESPIRATORY Respiratory: chest non-tender, lungs clear, normal breath sounds. negative: stridor, wheezing - CARDIOVASCULAR Cardiovascular: normal peripheral pulses, regular rate, rhythm. negative: no edema, bradycardia, tachycardia - GASTROINTESTINAL (ABDOMEN) Abdominal Exam: normal bowel sounds, non tender, soft. negative: guarding, rebound - MUSCULOSKELETAL Extremity: pedal edema - SKIN Integumentary: swelling (4+ edema from waist down to feet). negative: jaundice, rash - PSYCHIATRIC Psych/Mental Status: normal mood/affect, oriented x 3. negative: anxious, disheveled Progress - PLAN OF CARE/RESULTS Progress/Plan/Lab Results: Vital Signs - 8 hr 12/20/18 11:47 Temperature 97.4 F L Pulse Rate 84 Respiratory Rate 20 Blood Pressure 151/105 O2 Sat by Pulse Oximetry 98 Laboratory Results - last 24 hr 12/20/18 12/20/18 12/20/18 12:00 12:00 12:00 WBC 4.45 L RBC 3.61 L Hgb 11.0 L Hct 36.6 L MCV 101.4 H MCH 30.5 MCHC 30.1 L RDW Std Deviation 16.1 H Plt Count 167 MPV 12.3 H Immature Gran % (Auto) 0.0 Neut % (Auto) 68.0 Lymph % (Auto) 16.9 L [place] % (Auto) 12.6 H Eos % (Auto) 1.8 Baso % (Auto) 0.7 Immature Gran # (Auto) 0.00 Neut # (Auto) 3.03 Lymph # (Auto) 0.75 L [place] # (Auto) 0.56 Eos # (Auto) 0.08 Baso # (Auto) 0.03 Sodium 142 Potassium 4.4 Chloride 102 Carbon Dioxide 27 Anion Gap 13 BUN 46 H Creatinine 1.5 H Estimated GFR/1.73 m2 33 BUN/Creatinine Ratio 31 Glucose 100 Calculated Osmolality 295 Calcium 8.7 L Total Bilirubin 0.70 AST 30 ALT 16 Alkaline Phosphatase 95 Creatine Kinase 58 Troponin T Yhm-S-Tgflbrwthoj Pept Total Protein 7.1 Albumin 3.5 Globulin 3.6 Albumin/Globulin Ratio 1.0 TSH 4.16 12/20/18 12/20/18 12:00 12:00 WBC RBC Hgb Hct MCV MCH MCHC RDW Std Deviation Plt Count MPV Immature Gran % (Auto) Neut % (Auto) Lymph % (Auto) [place] % (Auto) Eos % (Auto) Baso % (Auto) Immature Gran # (Auto) Neut # (Auto) Lymph # (Auto) [place] # (Auto) Eos # (Auto) Baso # (Auto) Sodium Potassium Chloride Carbon Dioxide Anion Gap BUN Creatinine Estimated GFR/1.73 m2 BUN/Creatinine Ratio Glucose Calculated Osmolality Calcium Total Bilirubin AST ALT Alkaline Phosphatase Creatine Kinase Troponin T 0.024 Odq-G-Ovckiluoblq Pept 59012 H Total Protein Albumin Globulin Albumin/Globulin Ratio TSH Orders Category Date Time Status Saline Loc NOW Care 12/20/18 14:16 Active CBC WITH ELECTRONIC DIFF [HEME] Stat Lab 12/20/18 12:00 Completed CK PROFILE [SP CHEM] Stat Lab 12/20/18 12:00 Completed COMPREHENSIVE METABOLIC PANEL [CHEM] Stat Lab 12/20/18 12:00 Completed PRO B-NATRIURETIC PEPTIDE Stat Lab 12/20/18 12:00 Completed TROPONIN T Stat Lab 12/20/18 12:00 Completed TSH Stat Lab 12/20/18 12:00 Completed URINALYSIS W/POSS RFLX CULT [URINALYSIS] Stat Lab 12/20/18 12:28 Uncollected Furosemide [Lasix] Med 12/20/18 14:16 Discontinued 80 mg IV NOW ONE EKG [EKG] Stat Ther 12/20/18 12:27 Ordered Result Diagrams: 12/20/18 12:00 12/20/18 12:00 - REASSESSMENT Reassessment #1 Time Reassessed: 15:19 Status: improving (Given IV lasix, cardizem as HR increases to above 100 easily and with any exertion) - EKG 1 Time of EKG reading by physician:: 15:12 EKG Read and Signed by:: Keshawn Casarez EKG Interpretation (*Must complete 3 of following elements*): Abnormal Rate: 84 Rhythm: afib, rate controlled [place]: left QRS: poor R wave progression, PVC's ST Wave: non-specific ST changes - XRAY 1 XRAY Study: Chest Impression: Abnormal (Signed EXAM: CHEST-PORTABLE HISTORY: SOB, CHF TECHNIQUE: Chest single view COMPARISON: 09/28/2018 FINDINGS: The lungs are well expanded. The heart is enlarged. Left pacemaker. The vessels are not distended. There are no infiltrates. Small left pleural effusion. IMPRESSION: Cardiomegaly, but no pulmonary edema Electronically signed by Wenceslao Blanchard 12/20/2018 3:08 PM 12/20/18 1508 Interpreting Physician: Wenceslao Blanchard MD Dictated Date/Time: 12/20/18 1507 cc: Keshawn Casarez MD; Tahmina Stuart MD), See EMR Report - CONSULTS/PCP/HOSPITALIST Notification #1 *Consult/PCP/Hospitalist*: PABLO Aggarwal Time Discussed: 15:22 Consult Disposition: Admit Departure - Departure Date of Disposition Decision: 12/20/18 Time of Disposition Decision: 15:20 DIAGNOSIS: Anasarca, Weight gain with edema, Atrial fibrillation, chronic Acute exacerbation of CHF (congestive heart failure) Qualifiers: Heart failure type: combined systolic and diastolic Qualified Code(s): I50.43 - Acute on chronic combined systolic (congestive) and diastolic (congestive) heart failure Disposition: ADMITTED INPATIENT 09 Certified Medical Emergency: Emergent Condition: Stable Additional Freetext Instructions: ED Follow Up Instructions: You have been treated by a care provider in the Emergency Department. These instructions are being provided to you so you can have an understanding of how to care for yourself upon discharge. Upon discharge from the Emergency Dep artment, you are responsible for making arrangements for follow-up care by a physician of your choice. Take all prescribed medications as directed. Return to the Emergency Department immediately for any new or worsening symptoms. You may call the Physician Referral phone number at [phone] to obtain a list of Physicians who are taking new patients. Referrals and Follow-Ups: Tahmina Stuart MD [Primary Care Provider] - - Critical Care Note This patient required my direct & personal management of CC.: No Attestation - Physician/ TAM Attestation Patient care was provided by Advanced Practice Provider:: No The physician spent face to face time with patient:: Yes Advanced Practice Provider documentation review:: Supervising physician onsite and consulted in the evaluation and care of this patient. The physician did have a face to face encounter with the patient. This chart was documented by the indicated scribe, (Neelam Chappell, [employer]) and accurately reflects the services I performed and decisions made by me, Keshawn Casarez MD, as attested by the provider's signature.
[2018-12-20] MEDS ORDERED: ZOFRAN IV PRN (16:50)
[2018-12-20 17:52] LABS: URINE SOURCE CLEAN CATCH
[2018-12-20 17:56] LABS: BILIRUBIN URINE NEGATIVE (NEGATIVE); BLOOD URINE NEGATIVE (NEGATIVE); COLOR STRAW; GLUCOSE URINE NEGATIVE (NEGATIVE); KETONE URINE NEGATIVE (NEGATIVE); LEUKOCYTES URINE NEGATIVE (NEGATIVE); NITRITE URINE NEGATIVE (NEGATIVE); PROTEIN URINE TRACE mg/dL (NEGATIVE); SP GRAVITY URINE 1.008; TURBIDITY URINE CLEAR (CLEAR); UROBILINOGEN URINE NORMAL (NORMAL)
[2018-12-20 17:57] LABS: UR EPITHELIAL CELLS <10 /HPF (<10); URINE BACTERIA NEGATIVE /HPF; URINE RBC <10 /HPF (<10); URINE WBC <10 /HPF (<10)
[2018-12-20] MEDS: ELIQUIS PO SCH (20:10)
[2018-12-20] MEDS ORDERED: CALMOSEPTINE OINTMENT TOP PRN (21:11)
--- NOTE | 2018-12-21 01:36 | HISTORY AND PHYSICAL ---
PRIMARY CARE PROVIDER: Tahmina Stuart MD. PIPE MANUFACTURE SUPERVISOR: Serjio Braden MD. PIPE MANUFACTURE SUPERVISOR: CHIEF COMPLAINT: Lower extremity swelling. HISTORY OF PRESENT ILLNESS: Ms. Perla Brewer is an 88-year-old female with a medical history of chronic lower extremity edema with oozing, also history of chronic atrial fibrillation on Eliquis, hypertension, hyperlipidemia, congestive heart failure CKD, dementia, whose granddaughter is currently at the bedside. There are several other family members, but apparently Alva notified the granddaughter that the patient was having more swelling in the lower extremities along with redness and they felt like it was a cellulitis that they could not treat. Assessment reveals that there is swelling, there is some mild oozing, and they are red, but they are not warm to touch. She was afebrile without any elevation in the white blood cell count. It is also noted that she had a 25 pound fluid weight gain since her discharge from rehab. She went to [facility] and was discharged around 6 weeks ago. She was sent there for Clostridium difficile and congestive heart failure treatment. She had also had a urinary tract infection with Klebsiella for which she was treated as well. HOME MEDICATIONS: Included Lasix, metoprolol, torsemide. Apparently she also was treated with dicloxacillin 500 mg every 6 hours for what was felt to be lower extremity cellulitis. IMAGING: Chest x-ray is essentially clear, she has a pacemaker. Heart is enlarged, but there is no pulmonary edema. EKG shows atrial fibrillation, but the rate is controlled. So essentially she is going to be here and get diuresed with her congestive heart failure. PAST MEDICAL HISTORY: 1. Coronary artery disease with a history of coronary artery bypass grafting. 2. Systolic congestive heart failure. 3. Chronic atrial fibrillation on Eliquis. 4. Hypertension. 5. Hyperlipidemia. 6. CKD stage 3. 7. Dementia. 8. GERD. 9. Cataracts. SURGICAL HISTORY: 1. CABG. 2. Cholecystectomy. 3. Cataract surgery. 4. Pacemaker defibrillator. SOCIAL HISTORY: Denies tobacco, alcohol or illicit drug use. She lives at [facility]. FAMILY HISTORY: Denies. ALLERGIES: Iodine, contrast. HOME MEDICATIONS: 1. Dicloxacillin 500 mg p.o. every 6 hours. 2. Aspirin 81 mg p.o. daily. 3. Diltiazem 120 mg p.o. daily. 4. Torsemide 20 mg p.o. daily. 5. Pravastatin 80 mg p.o. daily. 6. Probiotic once daily. 7. Toprol 50 mg in the morning and 100 mg at night. 8. Fenofibrate 145 mg in the evenings. 9. Zoloft 25 mg p.o. daily. 10. Calmoseptine 0.81 g topical p.r.n. 11. Losartan 50 mg p.o. daily. 12. Lasix 40 mg p.o. twice daily. REVIEW OF SYSTEMS: Fourteen point review of systems are complete and all were negative except for those mentioned above in the HPI. PHYSICAL EXAMINATION: VITAL SIGNS: Temperature 97.4 degrees, heart rate 83, respiratory rate 20, blood pressure 156/83, O2 saturation 100% on room air. She is 5 feet 3 inch tall, 157 pounds with a BMI of 30.7. GENERAL: Ms. Perla Brewer is an 88-year-old female. She is in no acute distress. She is able answer her name and some questions appropriately. She was sitting up in bed eating without any difficulties. HEENT: Atraumatic, normocephalic. Pupils are equal, round and reactive to light. Extraocular movements intact. Mucous membranes are moist. NECK: Trachea midline. CARDIOVASCULAR: Irregularly irregular rate and rhythm. No rubs, gallops or murmurs. She has about 3+ lower pitting edema. She had +2 dorsalis and radial pulses. Positive JVD even at a 90 degrees angle. Negative carotid bruits. PULMONARY: Clear to auscultation. Bilateral breath sounds. No accessory muscle use or work of breathing noted. GI: Soft, nontender, nondistended. Positive bowel sounds x4. EXTREMITIES: Moves all extremities equally. Decreased range of motion. NEUROLOGIC: Knows the time and her name, otherwise pleasantly confused. Followed commands. Decreased sensory in the lower extremities. SKIN: Warm, dry and intact except for lower extremities from the rivas to just under knees down is red but cool to touch, although there was still good peripheral pulses, and on the right lower extremity there is a little bit of skin shearing. LABORATORY DATA: White blood cell is 4000, hemoglobin 11, hematocrit 36, platelet count 167,000. Sodium 142, potassium 4.4, BUN 46, creatinine is 1.5, glucose is 100, calcium is 8.7, bilirubin is 0.70, AST 30 ALT 16. CK is 58, troponin is 0.024, proBNP is 12,578, albumin is 3.5, TSH is 4.16. IMAGING: Chest x-ray, cardiomegaly, no pulmonary edema. EKG, atrial fibrillation, rate controlled at 84. ASSESSMENT/PLAN: 1. Acute on chronic systolic congestive heart failure with a reported ejection fraction of 40% in September of this year, also with pulmonary artery hypertension and a systolic on that is 55 to 60. She got 80 of Lasix IV in the ER, we will continue with 40 IV twice a day. We will continue her aspirin, torsemide, and beta farnaz. 2. History of coronary artery disease with CABG. Continue aspirin, statin and beta farnaz. No complaints of chest pain. 3. Concern for lower extremity cellulitis, it is red, but it is not warm to touch. White count is not up, she is afebrile. We will get blood cultures and a lactate. 4. Atrial fibrillation without RVR, she is rate controlled. She was on Eliquis at one point in time, we will resume that. We will also continue the diltiazem and the beta farnaz, rate control. 5. Hypertension. Continue Cozaar and also her metoprolol. 6. Depression. Continue Zoloft. 7. Hyperlipidemia. Continue fenofibrate and pravastatin. 8. Right lower extremity shearing or weeping, and also sacral stage I. We will consult Wound Care. 9. Deep venous thrombosis prophylaxis. She is on Eliquis. Dictated by PABLO Riley for Davian Saba MD cc: PABLO Riley MD I agree with most components of history, physical, assessment and plan. A separate addendum has been dictated. [facility] CENTEROsvaldo
[2018-12-21 07:21] LABS: BASO# 0.02 X1000 (0.0-0.2); BASO% 0.4 % (0.0-0.8); EOS# 0.09 X1000 (0.0-0.7); HEMATOCRIT 33.6 % (37.0-47.0); HEMOGLOBIN 10.2 g/dL (12.0-16.0); LYMPH# 0.68 X1000 (1.2-3.4); LYMPH% 15.1 % (20.5-51.1); MCH 30.5 PG (27-31); MCHC 30.4 g/dL (33-37); MCV 100.6 FL (81-99); MONO# 0.49 X1000 (0.11-0.59); MONO% 10.9 % (1.7-9.3); MPV 11.7 FL (7.4-10.4); NEUT# 3.23 X1000 (1.4-6.5); NEUT% 71.6 % (42.2-75.2); PLT 137 X1000 (130-400); RBC 3.34 XMIL (4.2-5.4); RDW 15.9 % (11.5-14.5); WBC 4.51 X1000 (4.8-10.8)
[2018-12-21 07:27] LABS: INR 1.32; PROTIME 16.6 Seconds (11.0-16.0)
[2018-12-21 07:28] LABS: PTT 36.5 Seconds (22.3-41.8)
--- NOTE | 2018-12-21 07:36 | HISTORY AND PHYSICAL ---
ADDENDUM: This is an addendum to a history and physical dictated by the nurse practitioner. I agree with most components of history, physical, assessment, and plan. In brief, Ms. Brewer is an 88-year-old lady with a past medical history of congestive heart failure and chronic atrial fibrillation, ejection fraction of 40%, who was brought in from the [facility] facility because of increasing bilateral lower extremity edema and need for IV diuresis. In the emergency room, she was hemodynamically stable. REVIEW OF SYSTEMS: Currently, the patient is sleepy and does not participate in the encounter meaningfully. Review of systems could not be obtained. PAST MEDICAL HISTORY: She has a history of congestive heart failure with a reduced ejection fraction with EF of 40%. She has chronic atrial fibrillation. PAST SURGICAL HISTORY: AICD placement. CURRENT MEDICATIONS: At home, she is supposed to be taking aspirin 81 mg daily, fenofibrate 145 mg daily, probiotic 1 capsule daily, metoprolol 100 mg at nighttime and 50 mg in the morning time, pravastatin 80 mg daily, losartan 50 mg daily, Lasix 40 mg b.i.d., diltiazem 120 mg daily. She is also listed to be taking torsemide 20 mg daily, sertraline 25 mg daily. VITALS: Temperature 97.6 degrees, pulse 86, respiratory rate 18, blood pressure 138/70, saturating 98% on room air. PHYSICAL EXAMINATION: Not in acute distress. Oral cavity is moist. Air entry is bilaterally equal. No wheeze, rhonchi, or crackles. S1 and S2 normal. No murmur, rub, or gallop. Abdomen: Soft, nontender. She has irregularly irregular heart rhythm. She has bilateral lower extremity edema extending up to the thighs. She is drowsy but arousable to verbal stimuli. She does not engage in encounter meaningfully. Does not follow commands to have a proper neurological assessment. LABS: Suggestive of macrocytic anemia, normal platelet count, normal WBC. She does have chronic kidney disease stage 3. Her troponins are unremarkable. She did have elevated proBNP. MICROBIOLOGY: She had blood cultures which were drawn for some reason. IMAGING: No new imaging except the chest x-ray which had cardiomegaly without any pulmonary edema. ASSESSMENT AND PLAN: 1. Acute on chronic systolic congestive heart failure exacerbation, likely due to medication due to inadequate Lasix dosing versus medication versus diet indiscretion. 2. Chronic kidney disease stage 3 to stage 4. 3. Essential hypertension. 4. Chronic atrial fibrillation, status post automatic implantable cardioverter defibrillator. 5. Hyperlipidemia. PLAN: I will resume most of her home medication. I will start her on IV diuresis. We will monitor closely the input and output. I will resume most of her atrial fibrillation medications. The patient's family would be kept updated. cc: Davian Saba MD
[2018-12-21 07:39] LABS: CALCIUM 8.6 mg/dL (8.8-10.2); CREATININE 1.5 mg/dL (0.5-0.9); POTASSIUM 3.6 mmol/L (3.5-5.1); TOTAL BILIRUBIN 0.72 mg/dL (0.20-1.00)
--- NOTE | 2018-12-21 08:33 | EKG Report ---
Test Performed on : 12/21/2018 08:13:51 AM Test Reason : chest pain Blood Pressure : / mmHG Vent. Rate : 079 BPM Atrial Rate : 107 BPM P-R Int : 000 ms QRS Dur : 088 ms QT Int : 394 ms P-R-T Axes : 000 -16 -29 degrees QTc Int : 451 ms Atrial fibrillation. Cannot rule out Anterior infarct (cited on or before 28-SEP-2018) Abnormal ECG When compared with ECG of 20-DEC-2018 15:12, (Unconfirmed) No significant change was found Confirmed by Dakota OLIVARES, Geoffrey Graham ([id number]) on 12/22/2018 7:44:36 AM
[2018-12-21] MEDS: COZAAR PO SCH (08:57)
[2018-12-21] MEDS: CULTURELLE PO SCH (08:58)
[2018-12-21] MEDS: PRAVACHOL PO SCH (08:58)
[2018-12-21] MEDS: ZOLOFT PO SCH (08:58)
[2018-12-21] MEDS: ASPIRIN EC PO SCH (08:58)
[2018-12-21] MEDS: LASIX IV SCH ×2 (08:58→20:08)
[2018-12-21] MEDS: TOPROL XL PO SCH ×2 (08:58→20:08)
[2018-12-21] MEDS: TRICOR PO SCH (08:58)
[2018-12-21] MEDS: ELIQUIS PO SCH ×2 (08:58→20:08)
[2018-12-21] MEDS: CARDIZEM CD PO SCH (08:58)
[2018-12-21] MEDS ORDERED: DEMADEX PO SCH (09:00)
--- NOTE | 2018-12-21 10:14 | Diag Imaging Result Doc PS360 ---
CHEST-2 VIEWS - 12/21/2018 INDICATION: sob COMPARISON: 12/20/2018 FINDINGS: Stable significant cardiomegaly. Stable pacemaker. Stable pulmonary vascular congestion. No definite pulmonary edema. There are small pleural effusions bilaterally. IMPRESSION: No visible change from prior. Electronically signed by Festus Reeves 12/21/2018 10:12 AM
[2018-12-21] MEDS: TYLENOL PO PRN ×2 (10:40→20:08)
--- NOTE | 2018-12-21 14:15 | PROGRESS NOTE ---
DATE: 12/21/2018 INTERVAL HISTORY: No acute events overnight. SUBJECTIVE: The patient is awake and alert. She does have dementia and appears to have bouts of confusion. She does not appear in any acute distress though. She is not able to engage in the encounter meaningfully. OBJECTIVE: Vital Signs: Temperature 98.9 degrees, pulse 91, respiratory rate 20, blood pressure 153/63, saturating 95% on room air. General: Not in acute distress. HEENT: Oral cavity is moist. Lungs: Air entry bilaterally equal. No wheeze or rhonchi. Mild inspiratory crackles, bilateral infrascapular region. Heart: S1, S2 normal. Irregularly irregular. No murmur, rub, or gallop. Abdomen: Soft, nontender. Extremities: Bilateral lower extremity edema extending up to thigh level. She also has generalized erythema affecting bilateral lower extremities, likely stasis dermatitis. Input and output suggests -2.6 L so far. LABORATORY DATA: Labs suggestive of anemia which is stable, normal platelet count, chronic kidney disease stage IIIB. MICROBIOLOGY: Blood cultures were collected for some reason. IMAGING: Chest x-ray this morning: No visible change from the prior. There was significant cardiomegaly, pacemaker, pulmonary vascular congestion, and small pleural effusions. ASSESSMENT AND PLAN: 1. Acute on chronic systolic congestive heart failure exacerbation with ejection fraction of 40%, likely due to inadequate Lasix dosing versus dietary indiscretion. Continue intravenous Lasix at current dose, with close monitoring of daily weight, BMP, kidney function, and electrolytes. I will continue her metoprolol and losartan. 2. History of chronic atrial fibrillation, status post automatic implantable cardioverter- defibrillator. I will continue her home apixaban, diltiazem, metoprolol succinate. 3. History of coronary artery disease, status post coronary artery bypass graft in 2006 with ischemic cardiomyopathy. Continue her home aspirin, fenofibrate, and pravastatin. 4. History of dementia with behavioral disturbance. Continue nighttime sertraline. 5. Disposition. I will continue to monitor the patient inside the hospital for need for intravenous diuresis. I called the patient's son and informed him about the patient's course. All of his questions were answered. cc: Davian Saba MD
[2018-12-21] MEDS: KLOR-CON PO SCH ×2 (15:23→17:20)
[2018-12-22 07:42] LABS: CREATININE 1.5 mg/dL (0.5-0.9); POTASSIUM 4.7 mmol/L (3.5-5.1)
[2018-12-22] MEDS: COZAAR PO SCH (08:06)
[2018-12-22] MEDS: TRICOR PO SCH (08:06)
[2018-12-22] MEDS: ZOLOFT PO SCH (08:07)
[2018-12-22] MEDS: ASPIRIN EC PO SCH (08:07)
[2018-12-22] MEDS: PRAVACHOL PO SCH (08:07)
[2018-12-22] MEDS: CULTURELLE PO SCH (08:07)
[2018-12-22] MEDS: CARDIZEM CD PO SCH (08:07)
[2018-12-22] MEDS: TOPROL XL PO SCH ×2 (08:07→21:40)
[2018-12-22] MEDS: LASIX IV SCH ×2 (08:07→21:40)
[2018-12-22] MEDS: ELIQUIS PO SCH ×2 (08:07→21:40)
--- NOTE | 2018-12-22 14:57 | PROGRESS NOTE ---
DATE: 12/22/2018 INTERVAL HISTORY: No acute events overnight. SUBJECTIVE: She denies any complaint. She is occasionally crying. VITALS: Temperature 97.9 degrees, pulse 80, respiratory rate 19, blood pressure 140/60, saturating 98% room air. PHYSICAL EXAMINATION: General: Does not appear in acute distress. Oral cavity is moist. She has inspiratory crackles, bilateral infrascapular region. No wheeze or rhonchi. S1, S2 normal. No murmur, rub, or gallop. Appears irregularly irregular. Abdomen: Soft, nontender, significantly improved bilateral lower extremity edema. She does have bilateral leg erythema with some warmth, but there is no clearly demarcated area to suggest cellulitis. Her WBC count has been normal as well. LABS: Suggestive of no leukocytosis. Her magnesium and kidney function is stable. ASSESSMENT AND PLAN: 1. Acute on chronic systolic congestive heart failure exacerbation with ejection fraction of 40% due to inadequate Lasix dose versus dietary indiscretion. 2. Chronic atrial fibrillation status post AICD and on home apixaban. 3. History of coronary artery disease status post CABG in 2006 with ischemic cardiomyopathy. 4. History of dementia with behavioral disturbance. PLAN: I will stop intravenous diuresis later tonight and start patient on oral diuretics tomorrow. I will continue all of her home medication including apixaban, aspirin, fenofibrate, losartan, metoprolol and pravastatin. I will also continue her on sertraline for behavioral disturbance. DISPOSITION: I am anticipating the patient to remain in the hospital for today and probably tomorrow as I monitor her response to oral diuretics. Plan of care discussed with her. Yesterday I had a discussion of plan of care with her daughter as well. Their questions have been answered. cc: Davian Saba MD
[2018-12-22] MEDS: BACTROBAN OINTMENT TOP SCH ×2 (16:40→21:39)
[2018-12-22] MEDS: HALDOL IV PRN (21:40)
[2018-12-23 08:54] LABS: CREATININE 1.5 mg/dL (0.5-0.9); MAGNESIUM 1.9 mg/dL (1.5-2.7); POTASSIUM 4.2 mmol/L (3.5-5.1)
[2018-12-23] MEDS: CARDIZEM CD PO SCH (09:39)
[2018-12-23] MEDS: LASIX PO SCH ×2 (09:39→21:33)
[2018-12-23] MEDS: CULTURELLE PO SCH (09:39)
[2018-12-23] MEDS: ASPIRIN EC PO SCH (09:39)
[2018-12-23] MEDS: ZOLOFT PO SCH (09:39)
[2018-12-23] MEDS: ELIQUIS PO SCH ×2 (09:39→21:33)
[2018-12-23] MEDS: TRICOR PO SCH (09:39)
[2018-12-23] MEDS: PRAVACHOL PO SCH (09:39)
[2018-12-23] MEDS: COZAAR PO SCH (09:39)
[2018-12-23] MEDS: TOPROL XL PO SCH ×2 (09:39→21:33)
[2018-12-23] MEDS: BACTROBAN OINTMENT TOP SCH ×2 (09:40→21:33)
--- NOTE | 2018-12-23 11:05 | PROGRESS NOTE ---
DATE: 12/23/2018 INTERVAL HISTORY: No acute events overnight. SUBJECTIVE: Patient is alert, not in any distress. She does have some baseline dementia and confusion. VITALS: Temperature 97.5 degrees, pulse 79, respiratory rate 24, blood pressure 170/60, saturating 96% room air. PHYSICAL EXAMINATION: General: Not in acute distress. HEENT: Oral cavity is moist, Lungs: Air entry bilaterally equal. No wheeze or rhonchi. Inspiratory crackles bilateral infrascapular region. Cardiovascular: S1, S2 normal. No murmur, rub, or gallop. Irregularly irregular. Abdomen: Soft, nontender. Extremities: Bilateral lower extremity edema is significantly diminished. Neurologic: She is alert. She is able to move both upper and lower extremities well. No facial droop. : Input and output suggests negative 2.8 liters. LABORATORY DATA: No CBC today. BMP suggestive of essentially normal electrolytes without hypokalemia or hypomagnesemia. She does have baseline CKD stage 3, which is currently stable with BUN of 42, creatinine of 1.5. ASSESSMENT AND PLAN: 1. Acute on chronic systolic congestive heart failure exacerbation with ejection fraction of 40% due to inadequate Lasix dose versus dietary indiscretion. I will change intravenous Lasix to oral Lasix and I will continue her home medications of beta blockers, losartan. 2. Chronic atrial fibrillation status post AICD. Currently rate is well controlled. Continue home apixaban, diltiazem, metoprolol. 3. History of coronary artery disease status post coronary artery bypass grafting in 2006 with ischemic cardiomyopathy. Continue home aspirin, pravastatin and fenofibrate. 4. History of dementia with behavior disturbance. I will continue home sertraline and as needed haloperidol. DISPOSITION: I would await 24 hours urine on oral Lasix. Based on that I would anticipate discharge in the next 24 hours. Plan of care discussed with the patient and her questions have been answered. cc: Davian Saba MD
[2018-12-23 13:00] LABS: BASO# 0.01 X1000 (0.0-0.2); BASO% 0.1 % (0.0-0.8); EOS# 0.12 X1000 (0.0-0.7); EOS% 1.7 % (0.0-10.0); HEMATOCRIT 38.2 % (37.0-47.0); HEMOGLOBIN 11.4 g/dL (12.0-16.0); LYMPH# 0.88 X1000 (1.2-3.4); LYMPH% 12.6 % (20.5-51.1); MCH 30.5 PG (27-31); MCHC 29.8 g/dL (33-37); MCV 102.1 FL (81-99); MONO# 0.92 X1000 (0.11-0.59); MONO% 13.2 % (1.7-9.3); MPV 12.2 FL (7.4-10.4); NEUT# 5.05 X1000 (1.4-6.5); NEUT% 72.4 % (42.2-75.2); PLT 155 X1000 (130-400); RBC 3.74 XMIL (4.2-5.4); RDW 16.2 % (11.5-14.5); WBC 6.98 X1000 (4.8-10.8)
[2018-12-23] MEDS ORDERED: SEROQUEL PO SCH (21:00)
[2018-12-23] MEDS ORDERED: MELATONIN PO SCH (21:00)
[2018-12-24 07:40] VITALS: BP 159/70
[2018-12-24 08:09] LABS: CALCIUM 8.6 mg/dL (8.8-10.2); CREATININE 1.1 mg/dL (0.5-0.9); MAGNESIUM 1.8 mg/dL (1.5-2.7); POTASSIUM 3.4 mmol/L (3.5-5.1)
[2018-12-24] MEDS: PRAVACHOL PO SCH (09:20)
[2018-12-24] MEDS: CARDIZEM CD PO SCH (09:20)
[2018-12-24] MEDS: HALDOL IV PRN (09:20)
[2018-12-24] MEDS: ZOLOFT PO SCH (09:21)
[2018-12-24] MEDS: ASPIRIN EC PO SCH (09:21)
[2018-12-24] MEDS: TOPROL XL PO SCH (09:21)
[2018-12-24] MEDS: COZAAR PO SCH (09:21)
[2018-12-24] MEDS: LASIX PO SCH (09:21)
[2018-12-24] MEDS: BACTROBAN OINTMENT TOP SCH (09:21)
[2018-12-24] MEDS: ELIQUIS PO SCH (09:21)
[2018-12-24] MEDS: TRICOR PO SCH (09:21)
[2018-12-24] MEDS: CULTURELLE PO SCH (09:21)
[2018-12-24] MEDS ORDERED: KLOR-CON PO ONE (09:30)
--- NOTE | 2018-12-24 14:22 | DISCHARGE SUMMARY ---
ADMISSION DATE: 12/20/2018 DISCHARGE DATE: 12/24/2018 DISCHARGE DISPOSITION: Back to her assisted living facility. DISCHARGE CONDITION: Hemodynamically stable. She is alert. She is oriented to herself. However, she does have some baseline confusion. She complains of generalized body ache. She is making good amount of urine on oral Lasix and her urine catheter is currently being discontinued. DISCHARGE DIAGNOSES: 1. Acute on chronic systolic congestive heart failure exacerbation due to inadequate Lasix dose versus dietary indiscretion. 2. Bilateral lower extremity edema due to congestive heart failure exacerbation. 3. Hypokalemia. OTHER DIAGNOSES: 1. History of chronic kidney disease stage 3B. 2. History of chronic systolic congestive heart failure with ejection fraction of 40%. 3. Chronic atrial fibrillation. 4. Status post AICD. 5. History of coronary artery disease status post CABG in 2006 with ischemic cardiomyopathy. 6. Hyperlipidemia. 7. Dementia with behavior disturbance. DISCHARGE MEDICATIONS: Aspirin 81 mg daily, diltiazem 120 mg daily, pravastatin 80 mg daily, probiotics 1 capsule daily, metoprolol succinate extended release 50 mg in the morning time and 100 mg in the evening, fenofibrate 145 mg daily, sertraline 25 mg daily, melatonin 3 mg at nighttime, quetiapine 25 mg at nighttime. Calmoseptine ointment 1 g topical as needed, losartan 50 mg daily, apixaban 2.5 mg b.i.d., furosemide 40 mg b.i.d., acetaminophen 650 mg every 6 hours as needed. VITALS: At the time of discharge, temperature 98.3 degrees, pulse 73, respiratory rate 18, blood pressure 159/70, saturating 95% on room air. PHYSICAL EXAMINATION: General: Does not appear in acute distress. Oral cavity is moist. Air intake bilaterally equal. No wheeze or rhonchi. Mild inspiratory crackles bilateral infrascapular region. S1, S2 normal. Irregularly irregular. No rub or gallop or murmur. Abdomen: Soft, nontender. Active bowel sounds. She does have bilateral lower extremity edema, which has significantly decreased since presentation. Neurologic: She is alert. She is eating her meal with someone's help. However, she is confused in the setting of her baseline dementia. LABS: Her CBC during hospital admission was unremarkable with hemoglobin 11.4, platelet of 155,000. At the time of discharge her potassium was 3.4 which is being repleted. BUN of 33, creatinine 1.1, GFR of 47. Her magnesium is 1.8. Blood culture during hospital admission did not have any growth. Chest x-ray on admission had cardiomegaly without any pulmonary edema. Electrocardiogram on admission had atrial fibrillation with premature ventricular or aberrantly conducted complexes and could not rule out anterior infarct. HOSPITAL COURSE SUMMARY: Ms. Brewer is an 88-year-old lady with past medical history of chronic systolic congestive heart failure who was sent from her facility with chief complaints of lower extremity swelling. She also had history of chronic atrial fibrillation on Eliquis. On arrival to the emergency room she was found to be hemodynamically stable. However, she had extreme edema affecting bilateral lower extremities extending up to thigh, so hospitalist team was consulted for further need for IV diuresis. Urine catheter was inserted and patient was started on IV diuresis, which she tolerated well. Her electrolytes and kidney function were being monitored and she continued to have a stable chronic kidney disease stage 3. Later on from IV diuresis, she was switched to oral diuresis. Since hospital admission she made almost 11 L of urine and she was -10 L and she was making about 2 L of urine output on oral Lasix. It was decided to discharge her on current Lasix regimen. She was provided instructions about following up with repeat kidney function within 5 days and have a follow-up appointment with her heart doctor. More than 30 minutes were spent on this patient. Plan of care was discussed with her. During hospital course, I had kept the patient's son and [id number] informed. cc: Davian Saba MD
--- NOTE | 2018-12-27 08:20 | EKG Report ---
Test Performed on : 12/23/2018 8:56:30 PM Test Reason : ER Blood Pressure : / mmHG Vent. Rate : 097 BPM Atrial Rate : 576 BPM P-R Int : 000 ms QRS Dur : 084 ms QT Int : 360 ms P-R-T Axes : 000 -15 -22 degrees QTc Int : 457 ms Atrial fibrillation. Cannot rule out Anterior infarct (cited on or before 28-SEP-2018) Abnormal ECG When compared with ECG of 21-DEC-2018 08:13, No significant change was found Unconfirmed Result
== END 2018-12-24 12:51 | DRG 292 ==
LOC: ED 11:33 → 3N 17:26
PROVIDERS: ATTEND Internal Medicine

== ENCOUNTER 2019-01-30 14:39 | Inpatient (IN) ==
[2019-01-30 15:12] LABS: BASO# 0.02 X1000 (0.0-0.2); BASO% 0.4 % (0.0-0.8); EOS# 0.13 X1000 (0.0-0.7); EOS% 2.7 % (0.0-10.0); HEMATOCRIT 34.9 % (37.0-47.0); HEMOGLOBIN 10.4 g/dL (12.0-16.0); IMM GRAN# 0.03 X1000 (0.0-0.04); IMM GRAN% 0.6 % (0.0-0.5); LYMPH# 0.89 X1000 (1.2-3.4); LYMPH% 18.7 % (20.5-51.1); MCH 29.5 PG (27-31); MCHC 29.8 g/dL (33-37); MCV 98.9 FL (81-99); MONO# 0.59 X1000 (0.11-0.59); MONO% 12.4 % (1.7-9.3); MPV 13.1 FL (7.4-10.4); NEUT# 3.11 X1000 (1.4-6.5); NEUT% 65.2 % (42.2-75.2); PLT 133 X1000 (130-400); RBC 3.53 XMIL (4.2-5.4); RDW 16.4 % (11.5-14.5); WBC 4.77 X1000 (4.8-10.8)
[2019-01-30 15:18] LABS: INR 1.45; PROTIME 17.9 Seconds (11.0-16.0)
--- NOTE | 2019-01-30 15:21 | EKG Report ---
Test Performed on : 01/30/2019 2:47:48 PM Test Reason : sob Blood Pressure : / mmHG Vent. Rate : 087 BPM Atrial Rate : 094 BPM P-R Int : 000 ms QRS Dur : 086 ms QT Int : 368 ms P-R-T Axes : 000 -07 005 degrees QTc Int : 442 ms Atrial fibrillation. Possible Anterolateral infarct (cited on or before 28-SEP-2018) Abnormal ECG When compared with ECG of 23-DEC-2018 20:56, (Unconfirmed) No significant change was found Unconfirmed Result
[2019-01-30] MEDS ORDERED: LASIX IV ONE (15:28)
[2019-01-30 15:54] LABS: ALB/GLOB RATIO 1.1; ALBUMIN 3.4 g/dL (3.5-5.0); CALCIUM 8.3 mg/dL (8.8-10.2); CREATININE 1.5 mg/dL (0.5-0.9); POTASSIUM 3.5 mmol/L (3.5-5.1); TOTAL BILIRUBIN 0.84 mg/dL (0.20-1.00); TOTAL PROTEIN 6.6 g/dL (6.3-8.3)
--- NOTE | 2019-01-30 15:56 | Diag Imaging Result Doc PS360 ---
CHEST-2 VIEWS - 01/30/2019 INDICATION: sob COMPARISON: 12/21/2018 FINDINGS: Stable pacemaker. Stable cardiomegaly and significant pulmonary vascular congestion. There are small bilateral pleural effusions that have decreased somewhat since prior. There is probably some interstitial pulmonary edema diffusely, which appears new from prior. IMPRESSION: Mixed changes from prior. Cardiomegaly and pulmonary edema. Electronically signed by Festus Reeves 01/30/2019 3:54 PM
[2019-01-30 16:01] LABS: URINE SOURCE CATH
[2019-01-30 16:04] LABS: BILIRUBIN URINE NEGATIVE (NEGATIVE); BLOOD URINE NEGATIVE (NEGATIVE); COLOR YELLOW; GLUCOSE URINE NEGATIVE (NEGATIVE); KETONE URINE NEGATIVE (NEGATIVE); LEUKOCYTES URINE SMALL (NEGATIVE); NITRITE URINE NEGATIVE (NEGATIVE); PH URINE 6.5; PROTEIN URINE 30 mg/dL (NEGATIVE); SP GRAVITY URINE 1.011; TURBIDITY URINE CLEAR (CLEAR); UR EPITHELIAL CELLS <10 /HPF (<10); URINE BACTERIA 3+ /HPF; URINE RBC <10 /HPF (<10); URINE WBC <10 /HPF (<10); UROBILINOGEN URINE 2 mg/dL (NORMAL)
[2019-01-30] MEDS ORDERED: ROCEPHIN 1 GM in NS 50 ML IV ONE (16:52)
--- NOTE | 2019-01-30 17:00 | PROVIDER DOCUMENTATION ---
This chart was entered by Yuliana Pollock Scribe, acting as scribe for Keshawn Casarez MD. HPI-Respiratory General - General Chief Complaint: Shortness of Breath Stated Complaint: SOB, STOMACH SWELLING Time Seen by Provider: 01/30/19 15:16 Source: family Allergies/Adverse Reactions: Patient Allergies Allergy/AdvReac Type Severity Reaction Status Date / Time Iodinated Contrast Media Allergy RASH Verified 12/20/18 17:12 [IV Dye] Home Medications: Home Medication List Medication Instructions Recorded Confirmed Last Taken Type Aspirin [Aspir-Low] 1 tab PO DAILY 09/28/18 12/20/18 12/20/18 07:00 History Fenofibrate [Tricor] 1 tab ORDERED DAILY 09/28/18 12/20/18 12/20/18 07:00 History Lactobacillus 3/Fos/Pantethine 1 cap PO DAILY 09/28/18 12/20/18 12/20/18 07:00 History [Probiotic & Acidophilus Cap] Metoprolol Succinate E.r. [Toprol 100 mg PO HS 09/28/18 12/20/18 12/20/18 07:00 History Xl] Pravastatin Sodium [Pravachol] 1 tab PO DAILY 09/28/18 12/20/18 12/20/18 07:00 History Metoprolol Succinate E.r. [Toprol 50 mg PO DAILY 09/29/18 12/20/18 12/20/18 07:00 History Xl] Furosemide 1 tab PO BID #0 10/01/18 12/20/18 12/20/18 07:00 Rx Losartan [Cozaar] 50 mg PO DAILY tab 10/01/18 12/20/18 12/20/18 07:00 Rx Menthol/Zinc Oxide Ointment 1 gm TOP PRN PRN tube 10/01/18 12/20/18 12/20/18 07:00 Rx [Calmoseptine Ointment] Diltiazem HCl [Cartia Xt] 120 mg PO DAILY 12/20/18 12/20/18 12/20/18 07:00 Hi story Sertraline [Zoloft] 25 mg PO DAILY 12/20/18 12/20/18 12/19/18 21:00 History Acetaminophen [Tylenol] 650 mg PO Q6H PRN PRN tab 12/23/18 Unknown Rx Apixaban [Eliquis] 2.5 mg PO BID tab 12/23/18 Unknown Rx Melatonin 3 mg PO QHS tab 12/23/18 Unknown Rx Quetiapine [Seroquel] 25 mg PO QHS tab 12/23/18 Unknown Rx - History of Present Illness-Resp Nature of Presenting Problem: Patient is a 88 year old female who presents with shortness of breath, swelling to bilateral lower legs and weight gain. Family states patient has gained 6 lbs even with doubling her Lasix dose. Denies fever and chills. History of A fib and CHF. Quality of Pain: reports: none Severity in ED: reports: mild Onset/Duration: reports: gradual Timing: reports: still present, getting worse Associated Symptoms: reports: shortness of breath, other (weight gain and swelling to bilateral lower legs) Similar Symptoms Previously?: Yes Recently seen or treated by another doctor?: Yes Review of Systems - Adult - REVIEW OF SYSTEMS - ADULT ROS:: ROS per family Constitutional: reports: see HPI, weight gain. denies: chills, fever Eyes: reports: no symptoms reported Ears, Nose, Mouth & Throat: reports: no symptoms reported Cardiovascular: reports: no symptoms reported Respiratory: reports: see HPI, shortness of breath. denies: cough, wheezing Gastrointestinal: reports: no symptoms reported Genitourinary: reports: no symptoms reported Musculoskeletal: reports: no symptoms reported Integumentary: reports: no symptoms reported Neurological: reports: no symptoms reported Psychiatric: reports: no symptoms reported Endocrine: reports: no symptoms reported Hematologic/Lymphatic: reports: no symptoms reported Allergic/Immunologic: reports: no symptoms reported All Other Systems: Reviewed and Negative Past History - Adult - PAST MEDICAL HISTORY-ADULT Review of Records: reports: Old Records Reviewed, Nursing Assessment Review, Medications Reviewed, Social history reviewed & non-contributory. Major Childhood Illnesses: reports: denies history Cardiovascular: reports: A-Fib, CHF, HTN, hyperlipidemia, pacemaker Respiratory: reports: denies history Gastrointestinal: reports: GERD Obstetrical/Gynecological: reports: denies history Genitourinary: reports: incontinence, kidney disease Musculoskeletal: reports: denies history Neurological: reports: dementia Endocrine/Immune: reports: denies history Other Conditions: reports: denies history - PRIOR SURGERIES/PROCEDURES Surgical/Procedure History: reports: cholecystectomy, pacemaker - IMMUNIZATION STATUS Childhood Immunizations: See Nurse Assessment Flu Vaccine: See Nurse Assessment - FAMILY HISTORY Family History: reviewed, not pertinent - SOCIAL HISTORY Smoking: denies Substance Use: denies Living Situation: care facility (assisted living) Physical Exam-General - PHYSICAL EXAM-ADULT Initial Vital Signs Reviewed: Yes - CONSTITUTIONAL General Appearance: alert, no apparent distress. negative: lethargic - RESPIRATORY Respiratory: chest non-tender, decreased breath sounds (diminished bilaterally.) , increased rate. negative: respiratory distress - CARDIOVASCULAR Cardiovascular: normal peripheral pulses, gallop/S3, irregularly irregular. negative: tachycardia - GASTROINTESTINAL (ABDOMEN) Abdominal Exam: normal bowel sounds, non tender, soft. negative: guarding, rebound - MUSCULOSKELETAL Extremity: non-tender, other (3 + pitting edema to bilateral lower extremities.) . negative: erythema - SKIN Integumentary: normal color, normal turgor, warm/dry. negative: diaphoresis, pallor - PSYCHIATRIC Psych/Mental Status: normal mood/affect. negative: paranoid, tearful Progress - PLAN OF CARE/RESULTS Progress/Plan/Lab Results: Vital Signs - 8 hr 01/30/19 14:48 Temperature 97.8 F Pulse Rate 84 Respiratory Rate 20 Blood Pressure 135/79 O2 Sat by Pulse Oximetry 96 Laboratory Results - last 24 hr 01/30/19 01/30/19 01/30/19 14:57 14:57 14:57 WBC 4.77 L RBC 3.53 L Hgb 10.4 L Hct 34.9 L MCV 98.9 MCH 29.5 MCHC 29.8 L RDW Std Deviation 16.4 H Plt Count 133 MPV 13.1 H Immature Gran % (Auto) 0.6 H Neut % (Auto) 65.2 Lymph % (Auto) 18.7 L Mcintosh % (Auto) 12.4 H Eos % (Auto) 2.7 Baso % (Auto) 0.4 Immature Gran # (Auto) 0.03 Neut # (Auto) 3.11 Lymph # (Auto) 0.89 L Mcintosh # (Auto) 0.59 Eos # (Auto) 0.13 Baso # (Auto) 0.02 PT INR PTT (Actin FS) Sodium 144 Potassium 3.5 Chloride 100 Carbon Dioxide 27 Anion Gap 17 BUN 38 H Creatinine 1.5 H Estimated GFR/1.73 m2 33 BUN/Creatinine Ratio 25 Glucose 133 H Calculated Osmolality 298 Calcium 8.3 L Magnesium Total Bilirubin 0.84 AST 28 ALT 12 Alkaline Phosphatase 87 Creatine Kinase 28 Troponin T Qzn-T-Pfumevulwfw Pept 45587 H Total Protein 6.6 Albumin 3.4 L Globulin 3.2 Albumin/Globulin Ratio 1.1 Urine Source Urine Color Urine Turbidity Urine pH Ur Specific [place] Urine Protein Ur Glucose (Stick) Ur Ketones (Stick) Urine Blood Urine Nitrite Urine Bilirubin Urobilinogen Dipstick Urine Leukocytes Urine WBC (Auto) Urine RBC (Auto) U Epithel Cells (Auto) Urine Bacteria (Auto) 01/30/19 01/30/19 01/30/19 14:57 14:57 14:57 WBC RBC Hgb Hct MCV MCH MCHC RDW Std Deviation Plt Count MPV Immature Gran % (Auto) Neut % (Auto) Lymph % (Auto) Mcintosh % (Auto) Eos % (Auto) Baso % (Auto) Immature Gran # (Auto) Neut # (Auto) Lymph # (Auto) Mcintosh # (Auto) Eos # (Auto) Baso # (Auto) PT 17.9 H INR 1.45 PTT (Actin FS) 39.0 Sodium Potassium Chloride Carbon Dioxide Anion Gap BUN Creatinine Estimated GFR/1.73 m2 BUN/Creatinine Ratio Glucose Calculated Osmolality Calcium Magnesium 2.0 Total Bilirubin AST ALT Alkaline Phosphatase Creatine Kinase Troponin T 0.018 Jtn-V-Fivkdovdopt Pept Total Protein Albumin Globulin Albumin/Globulin Ratio Urine Source Urine Color Urine Turbidity Urine pH Ur Specific [place] Urine Protein Ur Glucose (Stick) Ur Ketones (Stick) Urine Blood Urine Nitrite Urine Bilirubin Urobilinogen Dipstick Urine Leukocytes Urine WBC (Auto) Urine RBC (Auto) U Epithel Cells (Auto) Urine Bacteria (Auto) 01/30/19 15:58 WBC RBC Hgb Hct MCV MCH MCHC RDW Std Deviation Plt Count MPV Immature Gran % (Auto) Neut % (Auto) Lymph % (Auto) Mcintosh % (Auto) Eos % (Auto) Baso % (Auto) Immature Gran # (Auto) Neut # (Auto) Lymph # (Auto) Mcintosh # (Auto) Eos # (Auto) Baso # (Auto) PT INR PTT (Actin FS) Sodium Potassium Chloride Carbon Dioxide Anion Gap BUN Creatinine Estimated GFR/1.73 m2 BUN/Creatinine Ratio Glucose Calculated Osmolality Calcium Magnesium Total Bilirubin AST ALT Alkaline Phosphatase Creatine Kinase Troponin T Fsp-C-Smymjwzfydu Pept Total Protein Albumin Globulin Albumin/Globulin Ratio Urine Source CATH Urine Color YELLOW Urine Turbidity CLEAR Urine pH 6.5 Ur Specific [place] 1.011 Urine Protein 30 A Ur Glucose (Stick) NEGATIVE Ur Ketones (Stick) NEGATIVE Urine Blood NEGATIVE Urine Nitrite NEGATIVE Urine Bilirubin NEGATIVE Urobilinogen Dipstick 2 A Urine Leukocytes SMALL A Urine WBC (Auto) <10 Urine RBC (Auto) <10 U Epithel Cells (Auto) <10 Urine Bacteria (Auto) 3+ Orders Category Date Time Status Cardiac Monitoring DIRECTED Care 01/30/19 14:52 Active Hedrick Cath Insertion ORDERED Care 01/30/19 15:29 Active Oxygen Therapy- ED Nursing DIRECTED Care 01/30/19 14:52 Active Saline Loc NOW Care 01/30/19 14:52 Active CHEST-2 VIEWS [RAD] Stat Exams 01/30/19 14:52 Completed BLOOD CULTURE [BLDCUL] Stat Lab 01/30/19 16:52 Uncollected CBC WITH ELECTRONIC DIFF [HEME] Stat Lab 01/30/19 14:57 Completed CK PROFILE [SP CHEM] Stat Lab 01/30/19 14:57 Completed COMPREHENSIVE METABOLIC PANEL [CHEM] Stat Lab 01/30/19 14:57 Completed MAGNESIUM [CHEM] Stat Lab 01/30/19 14:57 Completed PRO B-NATRIURETIC PEPTIDE Stat Lab 01/30/19 14:57 Completed PROTIME WITH INR [COAG] Stat Lab 01/30/19 14:57 Completed PTT [COAG] Stat Lab 01/30/19 14:57 Completed TROPONIN T Stat Lab 01/30/19 14:57 Completed URINALYSIS W/POSS RFLX CULT [URINALYSIS] Stat Lab 01/30/19 15:58 Completed URINE CULTURE [RM] Routine Lab 01/30/19 16:06 Received CefTRIAXONE [Rocephin] 1 gm Med 01/30/19 16:52 Active 0.9% Sodium Chloride Inj [Ns] 50 ml IV NOW Furosemide [Lasix] Med 01/30/19 15:28 Discontinued 80 mg IV NOW ONE CP/SOB/Palp >45 yrs of Age Stat Oth 01/30/19 14:52 Ordered EKG [EKG] Stat Ther 01/30/19 14:52 Draft Result Diagrams: 01/30/19 14:57 01/30/19 14:57 - REASSESSMENT Reassessment #1 Time Reassessed: 16:57 Status: improving (So far, only 250ml of UOP. Needs likely 6lbs diuresed per family. Old chart reviewed, Pro-BNP is not to far from baseline. Pulmonary edema on CXR. Also given IV rocephin for UTI) - EKG 1 Time of EKG reading by physician:: 14:47 EKG Read and Signed by:: Keshawn Casarez EKG Interpretation (*Must complete 3 of following elements*): Abnormal Rate: 87 Rhythm: atrial fibrillation. rate controlled. [place]: normal Comments: poor R wave, low voltage, NSSTTWC - XRAY 1 XRAY Study: Chest Impression: See EMR Report ( CHEST-2 VIEWS - 01/30/2019 INDICATION: sob COMPARISON: 12/21/2018 FINDINGS: Stable pacemaker. Stable cardiomegaly and significant pulmonary vascular congestion. There are small bilateral pleural effusions that have decreased somewhat since prior. There is probably some interstitial pulmonary edema diffusely, which appears new from prior. IMPRESSION: Mixed changes from prior. Cardiomegaly and pulmonary edema. Electronically signed by Festus Reeves 01/30/2019 3:54 PM 01/30/19 1554 Interpreting Physician: Festus Reeves MD Dictated Date/Time: 01/30/19 1553 cc: Keshawn Casarez MD; Tahmina Stuart MD) - CONSULTS/PCP/HOSPITALIST Notification #1 *Consult/PCP/Hospitalist*: Flanagan Time Discussed: 16:59 Consult Disposition: Will see in ED Departure - Departure Date of Disposition Decision: 01/30/19 Time of Disposition Decision: 16:59 DIAGNOSIS: Weight gain with edema, Pulmonary edema with congestive heart failure, NYHA class 3 Acute exacerbation of congestive heart failure Qualifiers: Heart failure type: diastolic Qualified Code(s): I50.33 - Acute on chronic diastolic (congestive) heart failure Disposition: ADMITTED INPATIENT 09 Certified Medical Emergency: Emergent Condition: Fair Referrals and Follow-Ups: Tahmina Stuart MD [Primary Care Provider] - - Critical Care Note This patient required my direct & personal management of CC.: No Attestation - Physician/ TAM Attestation Patient care was provided by Advanced Practice Provider:: No The physician spent face to face time with patient:: Yes Advanced Practice Provider documentation review:: Supervising physician onsite and consulted in the evaluation and care of this patient. The physician did have a face to face encounter with the patient. This chart was documented by the indicated scribe, (Yuliana Pollock Scribe) and accurately reflects the services I performed and decisions made by me, Keshawn Casarez MD, as attested by the provider's signature.
[2019-01-30] MEDS ORDERED: TYLENOL PO PRN (17:54)
--- NOTE | 2019-01-30 20:29 | HISTORY AND PHYSICAL ---
CHIEF COMPLAINT: Shortness of breath, weight gain. HISTORY OF PRESENT ILLNESS: 88-year-old female with a past medical history of coronary artery disease status post CABG, systolic heart failure with multiple episodes of exacerbation, chronic atrial fibrillation on Eliquis, hyperlipidemia, hypertension, CKD stage 3, dementia, GERD and cataracts presented to emergency department with a chief complaint of shortness of breath and swelling to bilateral lower legs and weight gain and apparently this happened between today and yesterday, as per the family she was feeling fine yesterday in the morning and 2 days ago. She denies any fever, chills, chest pain, headache, dysuria, bloody stools, melena, nausea, vomiting, constipation or diarrhea. She will be admitted to treat her CHF exacerbation, we will put this patient on telemetry. She seems to be stable now after getting furosemide in the emergency department. I will continue with most of her home medications as well. Her proBNP is 13,554. REVIEW OF SYSTEMS: All the 14 points of review of systems were reviewed, all of them negative except as per HPI. PAST MEDICAL HISTORY: Coronary artery disease status post CABG, systolic CHF, chronic atrial fibrillation on anticoagulation, hyperlipidemia, hypertension, CKD stage 3, dementia, GERD and cataracts. SURGICAL HISTORY: CABG, cholecystectomy, cataract surgery and pacemaker defibrillator placement. SOCIAL HISTORY: She denies tobacco, alcohol, or drug use, she lives at [facility]. FAMILY HISTORY: Noncontributory. ALLERGIES: Iodine contrast. VITAL SIGNS: Temperature 97.8 degrees, pulse 80, respiratory rate 18, blood pressure 151/80, oxygen saturation 95 on room air.HEENT: Head normocephalic, no trauma. PERRLA. Neck: Supple. No JVD. No masses. Central trachea. Chest: Clear to auscultation. Decreased breath sounds at the bases with crackles. Abdomen: Soft, nontender, nondistended. No hepatosplenomegaly. Extremities: 1+ lower extremity edema. No clubbing, no cyanosis. Neurologic: The patient is alert, she is awake, she is oriented x3. No focal deficits. LABORATORY: WBC 4.7, hemoglobin 10.4, hematocrit 34.9, platelet 133,000. Sodium 144, potassium 3.5, chloride 100, bicarbonate 27, BUN 38, creatinine 1.5, glucose 133, calcium 8.3, proBNP 13,558, albumin 3.4. ASSESSMENT AND PLAN: 1. Congestive heart failure exacerbation, I will put this patient on her home medications and I will give her Lasix IV twice a day, she already received a dose of Lasix in the emergency department, she seems to be no distress. We will continue with same monitor. I believe she can be discharged in the next 24 to 48 hours. 2. History of atrial fibrillation. Continue with home medications and anticoagulation. 3. Chronic kidney disease stage 3. This is her baseline. No changes. 4. Hypertension. Continue with same management. Vital signs are stable. 5. Gastroesophageal reflux disease. Continue with PPIs. 6. History of coronary artery disease status post coronary artery bypass graft and automated implantable cardioverter defibrillator placement, no chest pain at this moment. 7. Hyperlipidemia aware. 8. Dementia stable, she seems to be doing fine. I had a large conversation with the patient and the family member at the bedside including her son which is the power of [id number] tank driver, she has decided to be do not resuscitate level 1. We discussed her advanced directive for at least 50 minutes. We tried to explain to her multiple times her situation and they both agree the patient and the power of m48/m60 tank driver that the best management would be to keep her DNR. 1. Further recommendations pending hospital course. cc: Ivan Yao MD
[2019-01-30] MEDS: MELATONIN PO SCH (21:18)
[2019-01-30] MEDS: TOPROL XL PO SCH (21:18)
[2019-01-30] MEDS: SEROQUEL PO SCH (21:18)
[2019-01-30] MEDS: ELIQUIS PO SCH (21:18)
[2019-01-30 21:48] LABS: URINE SOURCE CATH
[2019-01-30 22:11] LABS: BILIRUBIN URINE NEGATIVE (NEGATIVE); BLOOD URINE TRACE (NEGATIVE); COLOR YELLOW; GLUCOSE URINE NEGATIVE (NEGATIVE); KETONE URINE NEGATIVE (NEGATIVE); LEUKOCYTES URINE NEGATIVE (NEGATIVE); NITRITE URINE NEGATIVE (NEGATIVE); PH URINE 7.5; PROTEIN URINE TRACE mg/dL (NEGATIVE); SP GRAVITY URINE 1.009; TURBIDITY URINE CLEAR (CLEAR); UR EPITHELIAL CELLS <10 /HPF (<10); URINE BACTERIA NEGATIVE /HPF; URINE WBC <10 /HPF (<10); UROBILINOGEN URINE NORMAL (NORMAL)
[2019-01-31 06:39] LABS: HEMATOCRIT 34.9 % (37.0-47.0); HEMOGLOBIN 10.8 g/dL (12.0-16.0); MCH 30.7 PG (27-31); MCHC 30.9 g/dL (33-37); MCV 99.1 FL (81-99); MPV 13.3 FL (7.4-10.4); RBC 3.52 XMIL (4.2-5.4); RDW 16.5 % (11.5-14.5); WBC 5.4 X1000 (4.8-10.8)
[2019-01-31 07:17] LABS: ALBUMIN 3.3 g/dL (3.5-5.0); CALCIUM 8.7 mg/dL (8.8-10.2); CREATININE 1.4 mg/dL (0.5-0.9); POTASSIUM 3.6 mmol/L (3.5-5.1); TOTAL BILIRUBIN 0.9 mg/dL (0.20-1.00); TOTAL PROTEIN 6.7 g/dL (6.3-8.3)
[2019-01-31] MEDS: ROCEPHIN 1 GM in NS 50 ML IV SCH (11:09)
[2019-01-31] MEDS: SEROQUEL PO SCH ×2 (11:11→22:37)
[2019-01-31] MEDS: TOPROL XL PO SCH ×2 (11:11→22:36)
[2019-01-31] MEDS: COZAAR PO SCH (11:11)
[2019-01-31] MEDS: LASIX IV SCH ×2 (11:11→22:38)
[2019-01-31] MEDS: CULTURELLE PO SCH (11:11)
[2019-01-31] MEDS: CARDIZEM CD PO SCH (11:11)
[2019-01-31] MEDS: ZOLOFT PO SCH (11:11)
[2019-01-31] MEDS: PRAVACHOL PO SCH (11:11)
[2019-01-31] MEDS: ASPIRIN EC PO SCH (11:11)
[2019-01-31] MEDS: TRICOR PO SCH (11:12)
[2019-01-31] MEDS: ELIQUIS PO SCH ×2 (11:12→22:37)
--- NOTE | 2019-01-31 15:54 | PROGRESS NOTE ---
DATE: 01/31/2019 SUBJECTIVE: The patient seems to be feeling better. We have a negative balance of 1.6 L. She is still having some crackles bilaterally, but she is able to breathe more comfortably, hopefully tomorrow she will be better and we are going to be able to discharge her back home. OBJECTIVE: Vital Signs: Temperature 97.5 degrees, pulse 88, respiratory rate 16, blood pressure 146/65 oxygen saturation 94% on room air. HEENT: Head normocephalic, no trauma. PERRLA. Neck: Supple. She does have some JVD central trachea. Chest: Clear to auscultation. Decreased breath sounds at the bases with crackles. Abdomen: Soft, nontender, nondistended. No hepatosplenomegaly. Extremities: 1+ lower extremity edema. No clubbing. No cyanosis. Neurological examination: The patient is awake, alert, she is oriented x3. No focal deficits. LABORATORY: WBC 5.4, hemoglobin 10.8, hematocrit 34.9, platelets 126. Sodium 141, potassium 3.6, chloride 98, bicarbonate 29. BUN 37, creatinine 1.4, glucose 94, calcium 8.7, albumin 3.3. ASSESSMENT AND PLAN: 1. Congestive heart failure exacerbation. Continue with same management for now. Intravenous Lasix; hopefully, tomorrow I will discharge this patient home. She is having good urine output. 2. History of atrial fibrillation. Continue home medications and anticoagulation. 3. Chronic kidney disease stage III. This is her baseline. 4. Hypertension. Continue with same management. 5. Gastroesophageal reflux disease. Continue proton pump inhibitor. 6. History of coronary artery disease status post coronary artery bypass graft and automatic implantable cardioverter defibrillator placement. No chest pain at this moment. 7. Hyperlipidemia. Aware. 8. Dementia, stable. She seems to be doing fine. This patient is Do Not Resuscitate level 1. cc: Ivan Yao MD
[2019-01-31] MEDS: MELATONIN PO SCH (22:37)
[2019-02-01 07:16] LABS: CREATININE 1.4 mg/dL (0.5-0.9); POTASSIUM 3.6 mmol/L (3.5-5.1)
[2019-02-01] MEDS: ROCEPHIN 1 GM in NS 50 ML IV SCH (09:39)
[2019-02-01] MEDS: LASIX IV SCH (09:41)
[2019-02-01] MEDS: CULTURELLE PO SCH (09:41)
[2019-02-01] MEDS: CARDIZEM CD PO SCH (09:41)
[2019-02-01] MEDS: ASPIRIN EC PO SCH (09:41)
[2019-02-01] MEDS: TOPROL XL PO SCH (09:41)
[2019-02-01] MEDS: SEROQUEL PO SCH (09:41)
[2019-02-01] MEDS: PRAVACHOL PO SCH (09:41)
[2019-02-01] MEDS: TRICOR PO SCH (09:41)
[2019-02-01] MEDS: ELIQUIS PO SCH (09:41)
[2019-02-01] MEDS: COZAAR PO SCH (09:41)
[2019-02-01] MEDS: ZOLOFT PO SCH (09:41)
[2019-02-01 12:07] VITALS: BP 155/80
--- NOTE | 2019-02-02 13:43 | DISCHARGE SUMMARY ---
ADMISSION DATE: 01/30/2019 DISCHARGE DATE: 02/01/2019 DISCHARGE DIAGNOSES: 1. Congestive heart failure exacerbation, better. 2. History of atrial fibrillation, on chronic anticoagulation. 3. Chronic kidney disease stage 3, stable, at baseline. 4. Hypertension. 5. Gastroesophageal reflux disease. 6. History of coronary artery disease, status post coronary artery bypass graft and automatic implantable cardioverter defibrillator placement. 7. Hyperlipidemia. 8. Dementia. 9. This patient is Do Not Resuscitate level 1. 10. Asymptomatic bacteriuria. PROCEDURES PERFORMED: Chest x-ray dated 01/30/2019. Impression: Mixed changes from prior, cardiomegaly and pulmonary edema. HOSPITAL COURSE: An 88-year-old, female with a past medical history of coronary artery disease, status post CABG and AICD placement, systolic heart failure with multiple episodes of exacerbation, chronic atrial fibrillation, on Eliquis, hyperlipidemia, hypertension, CKD stage 3, dementia, GERD, and cataracts. Presented to the emergency department with a chief complaint of shortness of breath and swelling to bilateral lower legs, and weight gain. Apparently, all the symptoms started the day of admission, on 01/30/2019. As per the patient's family, she was feeling fine the day before admission. The patient denied fever, chills, chest pain, headache, dysuria, blood in the stools, melena, nausea, vomiting, constipation, or diarrhea. She was admitted to treat her CHF exacerbation. This patient was placed on telemetry and she was given furosemide in the emergency department and also we continued with furosemide during this hospitalization. We resumed most of her medications as well. We had a negative balance of 3. During the course of her hospitalization, she was feeling better and actually she was not needing oxygen to be able to breathe. We have a positive culture in the urine that showed gram-negative rods, Klebsiella pneumoniae, but this patient denied dysuria at the beginning and also when I ask her today if she has some kind of symptoms to pee or burning sensation, fever, or chills, she denied that. Two urinalyses from the same day, one of them showed some bacteria and the other one was negative for bacteria. Negative white blood cells, negative nitrates. Probably, that was a contamination. On top of that, this patient was using a Hedrick catheter. Symptomatically, this patient feels better and she actually asked to go back to her place. She was answering most of my questions and she stated that she was doing fine. She has a history of dementia, though. She is not complaining of shortness of breath today, as per the patient, only when I move too much. She will be discharged to her long-term. I do believe this is her baseline. No leukocytosis during this hospitalization. No fever, no chills. Temperature has been stable with no signs of mild-grade fever or fever, no low blood pressure, and she has been always on room air. PHYSICAL EXAMINATION: Vital Signs: Temperature 97.5 degrees, pulse 88, respiratory rate 20, blood pressure 155/80, oxygen saturation 96 on room air. HEENT: Head normocephalic. No trauma. PERRLA. Neck: Supple. No JVD today. Central trachea. Chest: Clear to auscultation. Decreased breath sounds at the bases with some crepitus. Abdomen: Soft, nontender, nondistended. No hepatosplenomegaly. Extremities: Trace to 1+ lower extremity edema. No clubbing. No cyanosis. Neurological Examination: The patient is awake. She is oriented x2. She was not oriented to time today. No focal neurological deficits. LABORATORY DATA: Sodium 144, potassium 3.6, chloride 102, bicarbonate 29, BUN 39, creatinine 1.4, glucose 93, calcium 9. DISCHARGE MEDICATIONS: 1. Acetaminophen ER 650 mg tablet p.o. q.6 hours as needed. 2. Eliquis 2.5 mg p.o. b.i.d. 3. Aspirin 81 mg p.o. daily. 4. Diltiazem 120 mg p.o. daily. 5. Fenofibrate 145 mg p.o. tablet daily. 6. Furosemide 40 mg p.o. b.i.d. 7. Probiotic p.o. daily. 8. Loperamide 1 to 2 capsules p.o. q.4 hours as needed for diarrhea. 9. Losartan 50 mg p.o. daily. 10. Melatonin 3 mg p.o. at bedtime. 11. Metoprolol succinate 50 mg p.o. q.a.m. and 100 mg p.o. at bedtime. 12. Zofran 4 mg p.o. q.4 hours as needed for nausea and vomiting. 13. Pravastatin 80 mg p.o. daily. 14. Quetiapine 50 mg p.o. b.i.d. 15. Sertraline 50 mg p.o. daily. Time discharging this patient, 25 minutes. cc: Ivan Yao MD
== END 2019-02-01 13:08 | DRG 291 ==
LOC: ED 14:39 → 4N 19:57
PROVIDERS: ATTEND Internal Medicine